=== PATIENT | female | born 1955 | race African-American/Black ===

== ENCOUNTER 2016-06-14 09:56 | Emergency (ER) | payer MEDICAID ==
--- NOTE | 2016-06-14 10:24 | ER Document Report ---
ED Respiratory Problem - General Chief Complaint: Shortness Of Breath Stated Complaint: SHORTNESS OF BREATH,COUGH Notes: The patient is a 61-year-old female, past medical history hypertension, asthma, presents with 2 weeks of dry cough and wheezing. She tried her albuterol with some relief of her symptoms. She was seen in this ER a few weeks ago given steroids which helped her symptoms. She denies fevers, chest pain, shortness of breath, nausea, vomiting, recent travel, leg swelling or sputum. TRAVEL OUTSIDE OF THE [place] IN LAST 30 DAYS: No - Related Data Allergies/Adverse Reactions: aspirin [Aspirin] Allergy (Verified 02/16/16 17:42) phenazopyridine HCl [From Pyridium] Allergy (Verified 02/16/16 17:42) Past Medical History - Social History Smoking Status: Never Smoker Frequency of alcohol use: None Drug Abuse: None Family History: Reviewed & Not Pertinent, Hypertension Patient has suicidal ideation: No Patient has homicidal ideation: No - Past Medical History Cardiac Medical History: Reports: Hx Hypertension Pulmonary Medical History: Reports: Hx Asthma Denies: Hx Tuberculosis Renal/ Medical History: Reports: Hx Kidney Stones Psychiatric Medical History: Denies: Hx Depression Past Surgical History: Reports: Hx Genitourinary Surgery - BLADDER LIFT, Hx Hysterectomy, Hx Orthopedic Surgery - back surg x6 - Immunizations Hx Diphtheria, Pertussis, Tetanus Vaccination: Yes Hx Pneumococcal Vaccination: 06/10/03 Review of Systems - Review of Systems Notes: REVIEW OF SYSTEMS: CONSTITUTIONAL: Denies fever, chills, or sweats. Denies recent illness. EENT: Denies eye, ear, throat, or mouth pain or symptoms. Denies nasal or sinus congestion. CARDIOVASCULAR: Denies chest pain, syncope. RESPIRATORY: +cough, wheezing. Denies shortness of breath, difficulty breathing. GASTROINTESTINAL: Denies abdominal pain. Denies nausea, vomiting, or diarrhea. Denies constipation. GENITOURINARY: Denies difficulty urinating, painful urination, burning, frequency, or blood in urine. MUSCULOSKELETAL: Denies neck or back pain or joint pain or swelling. SKIN: Denies rash or skin lesions. HEMATOLOGIC: Denies easy bruising or bleeding. LYMPHATIC: Denies swollen, enlarged glands. NEUROLOGICAL: Denies altered mental status or loss of consciousness. Denies headache. Denies weakness or paralysis or loss of use of either side. Denies problems with gait or speech. Denies sensory or motor loss. PSYCHIATRIC: Denies anxiety or stress or depression. ALL OTHER SYSTEMS REVIEWED AND NEGATIVE. Physical Exam - Vital signs Vitals: Temp Pulse Resp BP Pulse Ox 98.2 F 81 24 H 132/51 H 99 06/14/16 10:07 06/14/16 10:07 06/14/16 10:06/14/16 10:06/14/16 10:07 - Notes Notes: PHYSICAL EXAMINATION: GENERAL: Well-appearing, well-nourished and in no acute distress. HEAD: Atraumatic, normocephalic. EYES: Pupils equal round and reactive to light, extraocular movements intact, sclera anicteric, conjunctiva are normal. ENT: nares patent, oropharynx clear without exudates. Moist mucous membranes. NECK: Normal range of motion, supple without lymphadenopathy LUNGS: Mild wheezing and rhonchi. HEART: Regular rate and rhythm without murmurs ABDOMEN: Soft, nontender, normoactive bowel sounds. No guarding, no rebound. No masses appreciated. EXTREMITIES: Normal range of motion, no pitting or edema. No cyanosis. NEUROLOGICAL: Cranial nerves grossly intact. Normal speech, normal gait. Normal sensory, motor, and reflex exams. PSYCH: Normal mood, normal affect. SKIN: Warm, Dry, normal turgor, no rashes or lesions noted. Course - Re-evaluation Re-evalutation: 06/14/16 11:39 After DuoNeb and steroids, patient's wheezing and coughing have resolved. No pneumonia on chest x-ray and EKG is not concerning for ACS. Patient appears well and is okay for outpatient treatment of her bronchitis/asthma exacerbation. Given strict return precautions and she understands. - Vital Signs Vital signs: Temp Pulse Resp BP Pulse Ox 98.2 F 81 24 H 107/90 H 100 06/14/16 10:07 06/14/16 10:07 06/14/16 11:01 06/14/16 11:01 06/14/16 11:01 - Diagnostic Test Radiology reviewed: Image reviewed, Reports reviewed Radiology results interpreted by me: 06/14/16 11:40 NAD - EKG Interpretation by Ks EKG shows normal: Sinus rhythm, [place], Intervals, QRS Complexes, ST-T Waves Discharge - Discharge Clinical Impression: Bronchitis with asthma, acute Condition: Good Disposition: HOME, SELF-CARE Additional Instructions: BRONCHITIS: You have acute bronchitis. This disease is an infection or inflammation of the air passageways in your lungs. Symptoms usually include cough, low grade fever, shortness of breath, and wheezing. The cough usually persists for a couple of weeks. Most cases of bronchitis get better without antibiotics. We prescribe antibiotics when we believe bacteria are damaging your airways, or if there's high risk the bronchitis will worsen into pneumonia. Increase your fluid intake. A cool mist humidifier may make your lungs more comfortable. An expectorant (cough medicine that loosens phlegm) can help. If you smoke, STOP!!! Recovery from bronchitis can be somewhat slow, but you should see improvement within a day or two. Repeated episodes of bronchitis may result in lung damage -- for example, chronic bronchitis, recurrent pneumonias, or emphysema. Call the doctor if you develop increasing fever, shortness of breath, chest pain, bloody sputum, or otherwise worsen. If you have not improved at all after several days, contact the physician. BRONCHITIS WITH BRONCHOSPASM (WHEEZING): You have bronchitis with bronchospasm (wheezing). Sometimes people develop wheezing with a chest cold. This occurs either because of an underlying tendency toward asthma or because the virus itself irritates the bronchial tubes. This irritation causes cough, shortness of breath, and wheezing. Emergency treatment of bronchospasm may include adrenaline shots or bronchodilator aerosol. You may feel lightheaded and have a rapid pulse for an hour or two. Rest and get plenty of fluids. At home, we'll treat you with a bronchodilator inhaler. Corticosteroids may be required for some patients. Until you recover, avoid chemical fumes, dusts, pollens, and exercising in very cold or dry air. If you smoke, stop now! Most cases of bronchitis get better without antibiotics. We prescribe antibiotics when we believe bacteria are damaging your airways, or if there's high risk the bronchitis will worsen into pneumonia. Increase your fluid intake. A cool mist humidifier may make your lungs more comfortable. An expectorant (cough medicine that loosens phlegm) can help. Repeated episodes of bronchitis and bronchospasm may result in lung damage -- for example, chronic bronchitis, recurrent pneumonias, or emphysema. If you develop a fever, increased wheezing, chest pain, or severe shortness of breath, you should contact the doctor immediately. INHALED BRONCHODILATORS: You have received a treatment of and/or prescription for an inhaled bronchodilator -- a medication which stimulates the airways in the lung to dilate. This improves the flow of air in asthma, bronchitis, and emphysema. These medicines have some similarity to adrenaline, and can cause similar side effects: shakiness, racing heart, and a sense of nervousness. These side effects decrease with time. Contact your doctor if these side effects are severe. Do not over-use the medicine. Too-frequent use of the inhaler may make it ineffective. Call your doctor if the inhaler is not controlling your symptoms at the prescribed doses. STEROID MEDICATION: You have been given an injection of or oral medicine of the cortisone/ steroid class. This medication is used to control inflammation or allergy. Siddharth t is usually only given for a short period of time, until the acute process subsides. There are usually no side effects from short-term use of cortisone-like medications. Some persons feel an increased sense of well-being and are not sleepy at bedtime. Long-term use of cortisone medications is best avoided, unless required for a severe condition. If your condition does not remit, or relapses after the course of corticosteroid medication, you should consult your physician. USE OF ACETAMINOPHEN (Tylenol): Acetaminophen may be taken for pain relief or fever control. It's much safer than aspirin, offering a wider range of "safe" dosages. It is safe during . Some brand names are Tylenol, Panadol, Datril, Anacin 3, Tempra, and Liquiprin. Acetaminophen can be repeated every four hours. The following are maximum recommended dosages: >89 pounds or adults 650 mg to 900 mg Acetaminophen can be repeated every four hours. Maximum dose not to exceed 4000 mg a day. SMOKING: If you smoke, you should stop smoking. The tar and chemicals in cigarette smoke are harmful. Smoking has been shown to cause: emphysema chronic bronchitis lung cancer mouth and throat cancer stomach and pancreas cancer premature aging defects In addition, smoking increases ear and lung infections in children of smokers. FOLLOW-UP CARE: If you have been referred to a physician for follow-up care, call the physician s office for an appointment as you were instructed or within the next two days. If you experience worsening or a significant change in your symptoms, notify the physician immediately or return to the Emergency Department at any time for re-evaluation. Prescriptions: Prednisone [Deltasone 10 mg Tablet] 10 mg PO ASDIR PRN #21 tablet PRN Reason:
[2016-06-14] MEDS ORDERED: IPRATROPIUM/ALBUTEROL 0.5-2.5 MG/3 ML AMPUL NEB STA (10:30)
[2016-06-14] MEDS ORDERED: PREDNISONE 20 MG TABLET PO ONE (10:31)
[2016-06-14 11:50] VITALS: BP 110/86
--- NOTE | 2016-06-14 13:46 | EKG REPORT ---
SEVERITY:- NORMAL ECG - SINUS RHYTHM : Confirmed by: Terry Tafoya 14-Jun-2016 13:22:03
== END 2016-06-14 11:48 | disposition home or self-care (01) ==
LOC: ER 09:56
DX: J20.9 Acute bronchitis, unspecified (principal); R06.02 Shortness of breath; I10 Essential (primary) hypertension; R05 Cough
CPT/HCPCS: 93005; 94640; 99285; 71020; 93010; J7512; J7620

== ENCOUNTER → 2017-03-18 | Outpatient (CLI) | payer MEDICAID ==
--- NOTE | 2017-03-18 18:43 | WOMENS IMAGING REPORT ---
EXAM DESCRIPTION: BILAT SCREENING MAMMO W/CAD COMPLETED DATE/TIME: 03/18/2017 4:08 pm REASON FOR STUDY: ROUTINE SCREENING; Z12.31 Z12.31 ENCNTR SCREEN MAMMOGRAM FOR MALIGNANT NEOPLASM O F DAYA COMPARISON: 12/14/2013 TECHNIQUE: Standard craniocaudal and mediolateral oblique views of each breast recorded using Cubresaa l acquisition. LIMITATIONS: None. FINDINGS: No masses, calcifications or architectural distortion. No areas of suspicion. Read with the assistance of CAD. .[facility] - R2 Cenova Version 1.3 .[facility] - R2 Cenova Version 1.3 .[facility] - R2 Cenova Version 2.4 .[facility] [place] - R2 Cenova Version 2.4 .[facility] - R2 Director Of Grants Version 9.2 IMPRESSION: NORMAL MAMMOGRAM. BIRADS 1. BREAST DENSITY: b. There are scattered areas of fibroglandular density. BIRAD: 1 NEGATIVE RECOMMENDATION: ROUTINE SCREENING COMMENT: The patient has been notified of the results by letter per SA requirements. Additional no tification policies are in place for contacting patient with suspicious or incomplete findings. Quality ID #225: The [employer] recommends an annual screening mammogram for women aged 40 years or over. This facility utilizes a reminder system to ensure that all patients receive reminder letters, and/or direct phone calls for appointments. This includes reminders for routine scr eening mammograms, diagnostic mammograms, or other Breast Imaging Interventions when appropriate. Th is patient will be placed in the appropriate reminder system. The [employer] (ACR) has developed recommendations for screening MRI of the breast s in certain patient populations, to be used in conjunction with mammography. Breast MRI surveillanc e may be appropriate for women with more than 20% lifetime risk of developing breast cancer as deter mined by genetic testing, significant family history of the disease, or history of mantle radiation f or Hodgkins Disease. ACR Practice Guidelines 2008. TECHNICAL DOCUMENTATION: FINDING NUMBER: (1) ASSESSMENT: (1) JOB ID: [id number] [employer]- All Rights Reserved
== END ==
LOC: WI 15:39
PROVIDERS: ATTEND Internal Medicine Geriatric Medicine
DX: Z12.31 Encounter for screening mammogram for malignant neoplasm of breast (principal)
CPT/HCPCS: 77067; G0202

== ENCOUNTER → 2017-09-26 | Outpatient (CLI) | payer MEDICAID ==
--- NOTE | 2017-09-27 16:15 | XCELERA REPORT ---
[address] [address] Lower Extremity Arterial Evaluation Name: GARFIELD GONZALEZ Age: 62 yrs Gender: Female : 1955 Patient Status: Outpatient Patient Location: Study Date: 09/26/2017 11:21 AM Procedure: A color flow and duplex scan of the lower extremity arteries was performed bilaterally with velocity and waveform anaylsis. Ankle brachial indicies performed. Reason For Study: PVD Ordering Physician: LEILANI SANCHEZ Performed By: Nickolas Garcia Measurements and Calculations Right Left SOLAR PROJECT ENGINEER PSV 135.1 104.3 cm/sec Prox PFA PSV -71.7 -87.1 cm/sec Prox SFA PSV 109.4 118.7 cm/sec Mid SFA PSV -101.2 -96.8 cm/sec Dist SFA PSV -88.4 -80.0 cm/sec Prox Pop A PSV 71.2 59.4 cm/sec Dist BALA PSV 49.4 120.2 cm/sec Dist FISHER WEIR PSV 91.8 92.6 cm/sec Nick Pedis PSV -39.7 -34.5 cm/sec Right Side Arterial Evaluation Normal velocity and triphasic waveforms noted from the Common Femoral artery to the Posterior Tibial artery. Biphasic in the Anterior Tibial artery. 0-19% stenosis at the Anterior Tibial artery. Ankle Brachial index is 1.1. Left Side Arterial Evaluation Normal velocity and triphasic waveforms noted from the Common Femoral artery to the Posterior Tibial artery. Biphasic in the Dorsalis Pedis artery. 0-19% stenosis at the Dorsalis Pedis artery. Ankle Brachial index is 1.04. Interpretation Summary Mild hemodynamically significant lesions in the bilateral lower extremities, on duplex imaging, at rest. : LEILANI SANCHEZ > Willem Hallman
== END ==
LOC: SP 11:02
PROVIDERS: ATTEND Podiatrist Foot Surgery
DX: I70.25 Atherosclerosis of native arteries of other extremities with ulceration (principal)
CPT/HCPCS: 93922; 93925

== ENCOUNTER → 2017-11-11 | Outpatient (CLI) | payer MEDICAID ==
--- NOTE | 2017-11-11 11:15 | XCELERA REPORT ---
[address] [address] Lower Extremity Venous Evaluation Name: GARFIELD GONZALEZ Age: 62 yrs Gender: Female : 1955 Patient Status: Outpatient Patient Location: Study Date: 11/11/2017 09:35 AM Procedure: Color flow and duplex imaging bilaterally of the veins of the lower extremities as well as the Common Femoral veins. Reason For Study: BLE SWELLING Ordering Physician: RHETT ALMONTE Performed By: Kaia Galeano Right Sided Venous Evaluation Normal vessel filling wall to wall, compression and augmentation as well as Colour flow down to the infrageniculate veins. Left Sided Venous Evaluation Normal vessel filling wall to wall, compression and augmentation as well as Colour flow down to the infrageniculate veins. Interpretation Summary No duplex evidence of DVT or obstruction in the bilateral lower extremities. : RHETT ALMONTE > Willem Hallman
== END ==
LOC: SP 09:01
PROVIDERS: ATTEND Internal Medicine Geriatric Medicine
DX: R22.43 Localized swelling, mass and lump, lower limb, bilateral (principal)
CPT/HCPCS: 93970

== ENCOUNTER → 2018-03-31 | Outpatient (CLI) | payer MEDICAID ==
--- NOTE | 2018-03-31 13:05 | RADIOLOGY REPORT (SQ) ---
EXAM DESCRIPTION: CAROTID DOPPLER COMPLETED DATE/TIME: 03/31/2018 11:04 am REASON FOR STUDY: R42 DIZZINESS R42 DIZZINESS AND GIDDINESS COMPARISON: None. TECHNIQUE: Grayscale ultrasound, Doppler velocity and spectra, and color Doppler images acquired of the extra-cranial carotid and vertebral arteries. Images stored on PACS. LIMITATIONS: None. FINDINGS: RIGHT CAROTID CCA Velocities: Within normal limits. ICA Velocities Peak systolic 1.05 m/s. End diastolic 0.54 m/s. Proximal ICA/CCA peak systolic ratio 1.54. Spectra normal. No significant plaque. LEFT CAROTID CCA Velocities: Within normal limits. ICA Velocities Peak systolic 1.0 m/s. End diastolic 0.55 m/s. Proximal ICA/CCA peak systolic ratio 1.13. Spectra normal. No significant plaque. VERTEBRAL ARTERIES: Antegrade flow. Normal waveforms. SUBCLAVIAN ARTERIES: No finding. OTHER: No other significant finding. IMPRESSION: NO HEMODYNAMICALLY SIGNIFICANT STENOSIS. COMMENT: Quality ID #195: Velocity criteria are extrapolated from the diameter data as defined by t he Society of Radiologists in Ultrasound Consensus Conference. Radiology 2003: 229; 340-346. TECHNICAL DOCUMENTATION: JOB ID: [id number] [employer]- All Rights Reserved Reading location - IP/workstation name: [email or web address]
== END ==
LOC: SP 09:07
PROVIDERS: ATTEND Physician Assistant Medical
DX: R42 Dizziness and giddiness (principal)
CPT/HCPCS: 93880

== ENCOUNTER → 2018-05-07 | Outpatient (CLI) | payer MEDICAID ==
--- NOTE | 2018-05-07 14:13 | WOMENS IMAGING REPORT ---
EXAM DESCRIPTION: 3D SCREENING MAMMO BILAT COMPLETED DATE/TIME: 05/07/2018 10:10 am REASON FOR STUDY: BILATERAL SCREENING MAMMO 3D/Z12.31 Z12.31 ENCNTR SCREEN MAMMOGRAM FOR MALIGNANT NEOPLASM OF DAYA COMPARISON: 2013, 2016 TECHNIQUE: Standard craniocaudal and mediolateral oblique views of each breast recorded using digita l acquisition and breast tomosynthesis. LIMITATIONS: None. FINDINGS: No masses, calcifications or architectural distortion. No areas of suspicion. Read with the assistance of CAD. .[facility] - R2 Cenova Version 1.3 .[facility] - R2 Cenova Version 1.3 .[facility] - R2 Cenova Version 2.4 .[facility] [place] - R2 Cenova Version 2.4 .[facility] - R2 Auto Winder Version 9.2 IMPRESSION: NORMAL MAMMOGRAM. BIRADS 1. BREAST DENSITY: b. There are scattered areas of fibroglandular density. BIRAD: 1 NEGATIVE RECOMMENDATION: ROUTINE SCREENING Please continue yearly bilateral screening mammography/tomosynthesis in April 2019 COMMENT: The patient has been notified of the results by letter per SA requirements. Additional no tification policies are in place for contacting patient with suspicious or incomplete findings. Quality ID #225: The [employer] recommends an annual screening mammogram for women aged 40 years or over. This facility utilizes a reminder system to ensure that all patients receive reminder letters, and/or direct phone calls for appointments. This includes reminders for routine scr eening mammograms, diagnostic mammograms, or other Breast Imaging Interventions when appropriate. Th is patient will be placed in the appropriate reminder system. The [employer] (ACR) has developed recommendations for screening MRI of the breast s in certain patient populations, to be used in conjunction with mammography. Breast MRI surveillanc e may be appropriate for women with more than 20% lifetime risk of developing breast cancer as deter mined by genetic testing, significant family history of the disease, or history of mantle radiation f or Hodgkins Disease. ACR Practice Guidelines 2008. DBT Technology DBT is a type of tomographic mammography. With conventional mammography, overlapping breast tissue ma y make lesions difficult to detect, even with good compression. DBT uses an x-ray tube that rotates a round the breast, taking images at different angles. These images are then combined to create thin sl ices of the breast that the radiologist can view as a 3D reconstruction. The [employer] unit can perform full-field digital mammograms (2D imaging); or DBT (3D imaging); or both, in a combination mode that quickly performs both the mammogram and the tomosynthesis scan while the breast is still compressed. PQRS 6045F: Fluoroscopic imaging is not utilized for breast tomosynthesis. TECHNICAL DOCUMENTATION: FINDING NUMBER: (1) ASSESSMENT: (1) JOB ID: [id number] [employer]- All Rights Reserved Reading location - IP/workstation name: [email or web address]
== END ==
LOC: WI 09:30
PROVIDERS: ATTEND Internal Medicine Geriatric Medicine
DX: Z12.31 Encounter for screening mammogram for malignant neoplasm of breast (principal)
CPT/HCPCS: 77063; 77067

== ENCOUNTER → 2018-08-18 | Outpatient (CLI) | payer MEDICAID ==
--- NOTE | 2018-08-18 18:17 | XCELERA REPORT ---
[address] [place] [facility] [address] Lower Extremity Venous Evaluation Procedure: Color flow and duplex imaging of the veins of the left lower extremity as well as the right Common Femoral vein. Right Sided Venous Evaluation The right common femoral vein is fully compressible. Spontaneous and phasic flow is present in the right common femoral vein. Left Sided Venous Evaluation Normal vessel filling wall to wall, compression and augmentation as well as Colour flow down to the infrageniculate veins. Interpretation Summary No duplex evidence of DVT or obstruction in the left lower extremity nor in the right Common Femoral vein. Name: GARFIELD GONZALEZ Age: 63 yrs Gender: Female : 1955 Patient Status: Outpatient Patient Location: [facility] Study Date: 08/18/2018 03:55 PM Reason For Study: LEFT LEG SWELLING Ordering Physician: HRETT ALMONTE Performed By: Nasreen Becerril : RHETT ALMONTE > Willem Hallman
== END ==
LOC: RAD 15:19
PROVIDERS: ATTEND Internal Medicine Geriatric Medicine
DX: M79.605 Pain in left leg (principal)
CPT/HCPCS: 93971

== ENCOUNTER → 2019-03-11 | Outpatient (CLI) | payer MEDICARE, MEDICAID ==
--- NOTE | 2019-03-11 12:24 | RADIOLOGY REPORT (SQ) ---
EXAM DESCRIPTION: CHEST PA/LATERAL COMPLETED DATE/TIME: 03/11/2019 12:16 pm REASON FOR STUDY: PRE-OP COMPARISON: 06/14/2016 EXAM PARAMETERS: NUMBER OF VIEWS: two views TECHNIQUE: Digital Frontal and Lateral radiographic views of the chest acquired. RADIATION DOSE: NA LIMITATIONS: none FINDINGS: LUNGS AND PLEURA: No opacities, masses or pneumothorax. No pleural effusion. MEDIASTINUM AND HILAR STRUCTURES: No masses or contour abnormalities. HEART AND VASCULAR STRUCTURES: Heart normal size. No evidence for failure. BONES: Chavira rods are in place. There are postsurgical changes in the cervical spine as well. HARDWARE: None in the chest. OTHER: No other significant finding. IMPRESSION: NO SIGNIFICANT RADIOGRAPHIC FINDING IN THE CHEST. TECHNICAL DOCUMENTATION: JOB ID: [id number] [employer]- All Rights Reserved Reading location - IP/workstation name: [email or web address]
[2019-03-11 12:33] LABS: ABSOLUTE EOSINOPHILS # (AUTO) 0.2 10^3/uL (0.0-0.6); ABSOLUTE LYMPHOCYTES (AUTO) 3.4 10^3/uL (0.5-4.7); ABSOLUTE MONOCYTES (AUTO) 0.4 10^3/uL (0.1-1.4); ABSOLUTE NEUT (AUTO) 4.7 10^3/uL (1.7-8.2); BASOPHILS % (AUTO) 0.4 % (0-2); EOSINOPHILS % (AUTO) 2.3 % (0-6); HEMATOCRIT 37.1 % (36.0-47.0); HEMOGLOBIN 12.7 g/dL (12.0-15.5); MEAN CORPUSCULAR HEMOGLOBIN 29.8 pg (27.0-33.4); MEAN CORPUSCULAR HGB CONC 34.3 g/dL (32.0-36.0); MEAN CORPUSCULAR VOLUME 87 fl (80-97); MONOCYTES % (AUTO) 4.1 % (3-13); PLATELET COUNT 244 10^3/uL (150-450); RED BLOOD COUNT 4.27 10^6/uL (3.72-5.28); RED CELL DISTRIBUTION WIDTH 14.2 % (11.5-14.0); SEGMENTED NEUTROPHILS % (AUTO) 54.2 % (42-78); TOTAL CELLS COUNTED % (AUTO) 100 %; WHITE BLOOD COUNT 8.7 10^3/uL (4.0-10.5)
[2019-03-11 12:39] LABS: APPEARANCE,URINE SLIGHTLY-CLOUDY; BILIRUBIN,URINE NEGATIVE (NEGATIVE); COLOR,URINE AMBER; GLUCOSE, URINE NEGATIVE (NEGATIVE); KETONES,URINE TRACE mg/dL (NEGATIVE); LEUKOCYTE ESTERASE,URINE MODERATE (NEGATIVE); NITRITE,URINE NEGATIVE (NEGATIVE); PROTEIN,URINE 30 mg/dL (NEGATIVE); URINE SPECIFIC GRAVITY 1.023; UROBILINOGEN,URINE NEGATIVE mg/dL (<2.0)
[2019-03-11 12:56] LABS: ANION GAP 7 (5-19); BLOOD UREA NITROGEN 13 mg/dL (7-20); CALCIUM 9.5 mg/dL (8.4-10.2); CARBON DIOXIDE 29 mmol/L (22-30); CHLORIDE 105 mmol/L (98-107); GLUCOSE 85 mg/dL (75-110)
--- NOTE | 2019-03-11 19:56 | EKG REPORT ---
SEVERITY:- NORMAL ECG - SINUS RHYTHM : Confirmed by: Karla Salas MD 11-Mar-2019 19:56:09
== END ==
LOC: OD 11:33
PROVIDERS: ATTEND Orthopaedic Surgery
DX: Z01.812 Encounter for preprocedural laboratory examination (principal); Z01.810 Encounter for preprocedural cardiovascular examination; Z01.811 Encounter for preprocedural respiratory examination
CPT/HCPCS: 36415; 71046; 80048; 81001; 85025; 93005; 93010

== ENCOUNTER → 2019-03-11 | Outpatient (CLI) | payer MEDICARE, MEDICAID ==
[~2019-03-11] MED LIST: BUPIVACAINE INJ/PF LIPOSOME/PF 266 MG/20 ML SDV INJ PRN; CEFAZOLIN INJ 1 GM VIAL IV PRN; DEXAMETHASONE SOD PHOSPHATE INJ 4 MG/1 ML VIAL ONE; FENTANYL CITRATE INJ/PF 100 MCG/2 ML AMPUL ONE; IBUPROFEN 800 MG in NORMAL SALINE 250 ML IV PRN; LACTATED RINGERS 1000 ML IV PRN; LIDOCAINE 0.5% INJ-PF (5 MG/ML) 50 ML SDV SUBCUT PRN; MIDAZOLAM 2 MG/2 ML INJ ONE; ONDANSETRON HCL INJ/PF 4 MG/2 ML SDV ONE; OXYCODONE HCL SR 10 MG TABLET PO PRN; PANTOPRAZOLE SODIUM 20 MG TABLET.DR PO PRN; PROPOFOL INJ 200 MG/20 ML VIAL IV ONE; TRANEXAMIC ACID INJ/PF 1,000 MG/10 ML SDV ONE; VANCOMYCIN HCL 1,000 MG in DEXTROSE 5%-WATER 250 ML IV PRN
== END ==
LOC: OD 11:50 → EDSTATUS 04-06 10:00
PROVIDERS: ATTEND Orthopaedic Surgery
DX: Z53.9 Procedure and treatment not carried out, unspecified reason (principal)
CPT/HCPCS: J1100; J1741; J2250; J2405; J2704; J3010; J3370; J3490; J7050; J7060

== ENCOUNTER → 2019-05-11 | Outpatient (CLI) | payer MEDICARE, MEDICAID ==
--- NOTE | 2019-05-11 13:58 | WOMENS IMAGING REPORT ---
EXAM DESCRIPTION: 3D SCREENING MAMMO BILAT COMPLETED DATE/TIME: 05/11/2019 10:36 am REASON FOR STUDY: Z12.31 ENCOUNTER FOR SCREENING MAMMOGRAM FOR MALIGNANT NEOPLASM OF BREAST Z12.31 ENCNTR SCREEN MAMMOGRAM FOR MALIGNANT NEOPLASM OF DAYA COMPARISON: Multiple since 2013 EXAM PARAMETERS: Views: Standard craniocaudal and mediolateral oblique views of each breast recorded using digital acquisition and breast tomosynthesis. Read with the assistance of CAD. .[facility] - R2 Storage Consultant Version 9.2 LIMITATIONS: None. FINDINGS: No suspicious masses, suspicious calcifications or architectural distortion. No areas of c oncern. IMPRESSION: NEGATIVE MAMMOGRAM. BIRADS 1. BREAST DENSITY: a. The breasts are almost entirely fatty. BIRAD: ASSESSMENT: 1 NEGATIVE RECOMMENDATION: ROUTINE SCREENING Please continue yearly bilateral screening mammography/tomosynthesis in May 2020 COMMENT: The patient has been notified of the results by letter per MQSA requirements. Additional no tification policies are in place for contacting patient with suspicious or incomplete findings. Quality ID #225: The [employer] [place] [employer] recommends an annual screening mammogram for women aged 40 years or over. This facility utilizes a reminder system to ensure that all patients receive reminder letters, and/or direct phone calls for appointments. This includes reminders for routine scr eening mammograms, diagnostic mammograms, or other Breast Imaging Interventions when appropriate. Th is patient will be placed in the appropriate reminder system. TECHNICAL DOCUMENTATION: FINDING NUMBER: (1) ASSESSMENT: (1) JOB ID: [id number] [employer]- All Rights Reserved Reading location - IP/workstation name: [email or web address]
== END ==
LOC: WI 09:42
PROVIDERS: ATTEND Internal Medicine Geriatric Medicine
DX: Z12.31 Encounter for screening mammogram for malignant neoplasm of breast (principal)
CPT/HCPCS: 77063; 77067

== ENCOUNTER → 2019-08-05 | Outpatient (CLI) | payer MEDICARE, MEDICAID ==
--- NOTE | 2019-08-05 10:06 | RADIOLOGY REPORT (SQ) ---
EXAM DESCRIPTION: CT ABD/PELVIS WITH IV ONLY COMPLETED DATE/TIME: 08/05/2019 9:41 am REASON FOR STUDY: R10.9 UNSPECIFIED ABDOMINAL PAIN, R19.7 DIARRHEA, UNSPECIFIED, R11.2 NAUSEA R10.9 UNSPECIFIED ABDOMINAL PAIN R19.7 DIARRHEA, UNSPECIFIED R11.2 NAUSEA WITH VOMITING, UNSPECIFIED COMPARISON: None. TECHNIQUE: CT scan of the abdomen and pelvis performed using helical scanning technique with dynamic intravenous contrast injection. No oral contrast. Images reviewed with lung, soft tissue, and bone windows. Reconstructed coronal and sagittal MPR images reviewed. Delayed images for evaluation of the urinary system also acquired. All images stored on PACS. All CT scanners at this facility use dose modulation, iterative reconstruction, and/or weight based d osing when appropriate to reduce radiation dose to as low as reasonably achievable (ALARA). [facility]: Dose Right [facility]: CareDose [facility]: Dose Right [facility]: Teradose 4D [facility]: [email or web address] CONTRAST TYPE AND DOSE: contrast/concentration: Isovue 350.00 mg/ml; Total Contrast Delivered: 100.0 ml; Total Saline Delivered: 72.0 ml RENAL FUNCTION: Creatinine 1.1. RADIATION DOSE: CT Rad equipment meets quality standard of care and radiation dose reduction techniq ues were employed. CTDIvol: 18.0 - 18.2 mGy. DLP: 1828 mGy-cm.. LIMITATIONS: None. FINDINGS: LOWER CHEST: No significant findings. No nodules or infiltrates. LIVER: Normal size. No masses. No dilated ducts. SPLEEN: Normal size. No focal lesions. PANCREAS: No masses. No significant calcifications. No adjacent inflammation or peripancreatic fluid collections. Pancreatic duct not dilated. GALLBLADDER: Surgically absent. ADRENAL GLANDS: No significant masses or asymmetry. RIGHT KIDNEY AND URETER: No solid masses. No significant calcifications. No hydronephrosis or hyd roureter. LEFT KIDNEY AND URETER: No solid masses. No significant calcifications. No hydronephrosis or hydr oureter. AORTA AND VESSELS: No aneurysm. No dissection. Renal arteries, SMA, celiac without stenosis. RETROPERITONEUM: No retroperitoneal adenopathy, hemorrhage or masses. BOWEL AND PERITONEAL CAVITY: No masses or inflammatory changes. No free fluid or peritoneal masses. APPENDIX: Not visualized. PELVIS: No mass. No free fluid. Normal bladder. ABDOMINAL WALL: No masses. Small umbilical hernia containing fat. BONES: No significant or acute findings. Surgical changes and hardware in the lumbar spine. OTHER: No other significant finding. IMPRESSION: NO SIGNIFICANT OR ACUTE FINDING IN THE ABDOMEN OR PELVIS ON CT SCAN WITH IV CONTRAST. I NCIDENTAL FINDINGS ABOVE. TECHNICAL DOCUMENTATION: JOB ID: [id number] Quality ID # [id number]: Final reports with documentation of one or more dose reduction techniques (e.g., Au tomated exposure control, adjustment of the mA and/or kV according to patient size, use of iterative reconstruction technique) 2010 [email or web address]- All Rights Reserved Reading location - IP/workstation name: [email or web address]
== END ==
LOC: RAD 08:38
PROVIDERS: ATTEND Internal Medicine Geriatric Medicine
DX: R10.9 Unspecified abdominal pain (principal); R19.7 Diarrhea, unspecified; R11.2 Nausea with vomiting, unspecified
CPT/HCPCS: 74177; 82565

== ENCOUNTER 2020-04-27 12:43 | Emergency (ER) | payer OTHER, MEDICARE, MEDICAID ==
[2020-04-27] MEDS ORDERED: OXYCODONE-ACETAMINOPHEN 5-325 MG TABLET PO ONE (13:33)
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
--- NOTE | 2020-04-27 14:29 | RADIOLOGY REPORT (SQ) ---
EXAM DESCRIPTION: CT CERVICAL SPINE WITHOUT IMAGES COMPLETED DATE/TIME: 04/27/2020 2:17 pm REASON FOR STUDY: neck pain COMPARISON: None. TECHNIQUE: Axial images acquired through the cervical spine without intravenous contrast. Images re viewed with lung, soft tissue and bone windows. Reconstructed coronal and sagittal MPR images review ed. Images stored on PACS. All CT scanners at this facility use dose modulation, iterative reconstruction, and/or weight based d osing when appropriate to reduce radiation dose to as low as reasonably achievable (ALARA). [facility]: Dose Right [facility]: CareDose [facility]: Dose Right [facility]: Teradose 4D [facility]: [employer] RADIATION DOSE: CT Rad equipment meets quality standard of care and radiation dose reduction techniq ues were employed. CTDIvol: 24.6 mGy. DLP: 477 mGy-cm. mGy. LIMITATIONS: None. FINDINGS: ALIGNMENT: Anatomic. MINERALIZATION: Normal. VERTEBRAL BODIES: No fractures or dislocation. DISCS: Multilevel degenerative disc FACETS, LATERAL MASSES, POSTERIOR ELEMENTS: No fractures. No dislocation. No acute findings. HARDWARE: Extensive spine hardware VISUALIZED RIBS: No fractures. LUNG APICES AND SOFT TISSUES: No significant or acute findings. OTHER: No other significant finding. IMPRESSION: No acute findings. TECHNICAL DOCUMENTATION: JOB ID: [id number] Quality ID # [id number]: Final reports with documentation of one or more dose reduction techniques (e.g., Au tomated exposure control, adjustment of the mA and/or kV according to patient size, use of iterative reconstruction technique) 2010 [employer]- All Rights Reserved Reading location - IP/workstation name: [email or web address]
[2020-04-27] MEDS ORDERED: LORAZEPAM INJ 2 MG/1 ML VIAL IM ONE (14:50)
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
[2020-04-27] MEDS ORDERED: ONDANSETRON HCL INJ/PF 4 MG/2 ML SDV IV ONE (15:00)
[2020-04-27] MEDS ORDERED: HYDROMORPHONE HCL INJ/PF 2 MG/ML AMPULE IV ONE ×2 (15:00→17:09)
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
[2020-04-27 16:06] LABS: ABSOLUTE LYMPHOCYTES (AUTO) 2.8 10^3/uL (0.5-4.7); ABSOLUTE MONOCYTES (AUTO) 0.6 10^3/uL (0.1-1.4); ABSOLUTE NEUT (AUTO) 6.4 10^3/uL (1.7-8.2); BASOPHILS % (AUTO) 0.4 % (0-2); EOSINOPHILS % (AUTO) 0.4 % (0-6); HEMATOCRIT 37.9 % (36.0-47.0); LYMPHOCYTES % (AUTO) 28.6 % (13-45); MEAN CORPUSCULAR HEMOGLOBIN 29.5 pg (27.0-33.4); MEAN CORPUSCULAR HGB CONC 34.4 g/dL (32.0-36.0); MEAN CORPUSCULAR VOLUME 86 fl (80-97); MONOCYTES % (AUTO) 5.6 % (3-13); PLATELET COUNT 261 10^3/uL (150-450); RED BLOOD COUNT 4.41 10^6/uL (3.72-5.28); RED CELL DISTRIBUTION WIDTH 13.9 % (11.5-14.0); TOTAL CELLS COUNTED % (AUTO) 100 %; WHITE BLOOD COUNT 9.9 10^3/uL (4.0-10.5)
[2020-04-27 16:22] LABS: ALBUMIN 4.3 g/dL (3.5-5.0); ALKALINE PHOSPHATASE 114 U/L (38-126); ANION GAP 13 (5-19); ASPARTATE AMINO TRANSFERASE 26 U/L (14-36); BILIRUBIN,DIRECT 0.1 mg/dL (0.0-0.4); BILIRUBIN,TOTAL 0.4 mg/dL (0.2-1.3); BLOOD UREA NITROGEN 15 mg/dL (7-20); CALCIUM 10.2 mg/dL (8.4-10.2); CARBON DIOXIDE 21 mmol/L (22-30); CHLORIDE 104 mmol/L (98-107); GLUCOSE 103 mg/dL (75-110); POTASSIUM 4.2 mmol/L (3.6-5.0)
[2020-04-27 16:42] VITALS: BP 123/73
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
[2020-04-27] MEDS ORDERED: DIAZEPAM INJ 10 MG/2 ML DISP.SYRIN IV ONE (18:14)
[2020-04-27 18:41] LABS: APPEARANCE,URINE SLIGHTLY-CLOUDY; BILIRUBIN,URINE NEGATIVE (NEGATIVE); COLOR,URINE YELLOW; GLUCOSE, URINE NEGATIVE (NEGATIVE); KETONES,URINE NEGATIVE (NEGATIVE); PROTEIN,URINE NEGATIVE (NEGATIVE); URINE SPECIFIC GRAVITY 1.029; UROBILINOGEN,URINE NEGATIVE mg/dL (<2.0)
--- NOTE | 2020-04-27 19:27 | EKG REPORT ---
SEVERITY:- NORMAL ECG - SINUS RHYTHM : Confirmed by: Karla Salas MD 27-Apr-2020 19:27:18
--- NOTE | 2020-04-27 22:03 | RADIOLOGY REPORT (SQ) ---
MRI of the lumbar spine: 04/27/2020 8:56 PM CORPSMAN TECHNIQUE: Sagittal T1, T2, STIR; axial T1 and T2-weighted images of the lumbar spine were obtained. HISTORY: 55-year old patient with severe intractable back pain. COMPARISON: CT of the lumbar spine from 04/27/2020 FINDINGS: Evaluation is limited by soft tissue attenuation as well as multilevel spinal artifact with hardware extending throughout the thoracolumbar spine. The visualized vertebral bodies appear to be well aligned. There are multilevel laminotomy defects present. The visualized kidneys demonstrate no evidence of hydronephrosis. The conus is not well visualized. No gross marrow signal abnormality is seen to suggest an acute injury or an infiltrative process. There is also interbody fusion at L2/L3 through L5/S1 present. There is some trace fluid signal posterior to the thecal sac at L4-L5 which is T2 hyperintense and T1 hypointense. The be due to postsurgical change. This measures at least 6.8 cm in craniocaudad dimension and 5 to 6 mm in AP dimension. Infection is not fully excluded. No gross neural foraminal narrowing is seen at the lower lumbar spine. The upper lumbar spine is very limited by artifact from the hardware. There is hyperintense signal within the subcutaneous soft tissues posteriorly which may represent dependent edema. This can also be seen with cellulitis or from postsurgical change. IMPRESSION: There is some trace fluid signal seen posterior to the thecal sac from L4 to L5 which may be due to surgery. Evaluation is very limited from multilevel spinal hardware and soft tissue artifact.
--- NOTE | 2020-04-27 22:08 | RADIOLOGY REPORT (SQ) ---
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 HISTORY: 55- year old patient with severe, intractable back pain. COMPARISON: CT the thoracic spine from 04/27/2020. FINDINGS: The visualized vertebral bodies appear to be well aligned. No abnormal marrow signal is seen to suggest an acute injury or an infiltrative process. There is multilevel spinal fusion noted throughout the thoracolumbar spine. Anterior cervicothoracic fusion hardware is also present. The hardware appears to begin at approximately T4 and extends into the visualized lumbar spine. The visualized paravertebral soft tissues appear unremarkable. No significant loss of vertebral body height is seen. Mild to moderate multilevel intervertebral disc space narrowing is seen. No gross cord signal abnormality is apparent. The cord is not well-visualized at the lower thoracic spine. There is hyperintense signal seen around the hardware within the lower lumbar spine region. This could be due to postoperative change. Infection or edema is not excluded. The conus is not visualized. IMPRESSION: There is multilevel spinal hardware present. There is hyperintense signal seen around the hardware at the thoracolumbar spine. This could be due to postoperative change. Infection is not fully excluded.
[2020-04-27] MEDS ORDERED: HYDROMORPHONE HCL INJ/PF 2 MG/ML AMPULE IM ONE (23:11)
[2020-04-27] MEDS ORDERED: ONDANSETRON 4 MG TAB.RAPDIS PO ONE (23:51)
[2020-04-27] MEDS ORDERED: METOCLOPRAMIDE HCL 10 MG TABLET PO ONE (23:58)
== END 2020-04-28 00:55 | disposition home or self-care (01) ==
LOC: ER 12:43
DX: M54.5 Low back pain (principal); M54.2 Cervicalgia; R07.9 Chest pain, unspecified; M25.561 Pain in right knee; M25.562 Pain in left knee; R10.9 Unspecified abdominal pain; R10.817 Generalized abdominal tenderness; S09.90XA Unspecified injury of head, initial encounter; V47.0XXA Car driver injured in collision with fixed or stationary object in nontraffic accident, initial encounter; V43.02XA Car driver injured in collision with other type car in nontraffic accident, initial encounter; Y93.89 Activity, other specified; Y92.481 Parking lot as the place of occurrence of the external cause; Z98.890 Other specified postprocedural states; R06.4 Hyperventilation; I10 Essential (primary) hypertension; J45.909 Unspecified asthma, uncomplicated; R00.0 Tachycardia, unspecified
CPT/HCPCS: 93005; 99285; 96372; 96374; 96375; 36415; 85025; 80053; 81001; 84484; 72146; 72148; 70450; 71260; 72125; 72128; 72131; 74177; 93010; J3360; J1170; J2060; J2405

== ENCOUNTER → 2020-06-17 | Outpatient (CLI) | payer MEDICARE, MEDICAID ==
--- NOTE | 2020-06-17 10:56 | WOMENS IMAGING REPORT ---
EXAM DESCRIPTION: 3D SCREENING MAMMO BILAT IMAGES COMPLETED DATE/TIME: 06/17/2020 10:27 am REASON FOR STUDY: Z12.31 ENCOUNTER FOR SCREENING MAMMOGRAM FOR MALIGNANT NEOPLASM OF BREAST Z12.31 ENCNTR SCREEN MAMMOGRAM FOR MALIGNANT NEOPLASM OF [place] COMPARISON: 2013 and subsequent. EXAM PARAMETERS: Standard craniocaudal and mediolateral oblique views of each breast recorded using digital acquisition and breast tomosynthesis. Read with the assistance of CAD. .[facility] - [employer] Version 9.2 LIMITATIONS: None. FINDINGS: RIGHT BREAST MASSES: No suspicious masses. CALCIFICATIONS: No new or suspicious calcifications. ARCHITECTURAL DISTORTION: None. ASYMMETRY: None noted. OTHER: No other significant findings. LEFT BREAST MASSES: No suspicious masses. CALCIFICATIONS: No new or suspicious calcifications. ARCHITECTURAL DISTORTION: None. ASYMMETRY: Focal asymmetry mid depth CC view close to 9 cm from the nipple. Not clearly seen previou sly although MLO view suggests chronic asymmetries. OTHER: No other significant findings. IMPRESSION: Left breast asymmetry. 0 Incomplete: Needs Additional Imaging Evaluation and/or prior Mammograms for Comparison. BREAST DENSITY: b. There are scattered areas of fibroglandular density. BIRAD: ASSESSMENT: 0 Incomplete: Needs Additional Imaging Evaluation and/or prior Mammograms for C omparison. RECOMMENDATION: RECOMMENDED FOLLOW-UP: Spot Compression with Ultrasound if indicated. ADDITIONAL RECOMMENDATION- No additional recommendations. The patient will be contacted for additional imaging. COMMENT: The patient has been notified of the results by letter per [place] requirements. Additional no tification policies are in place for contacting patient with suspicious or incomplete findings. Quality ID #[id number]: The [employer] recommends an annual screening mammogram for women aged 40 years or over. This facility utilizes a reminder system to ensure that all patients receive reminder letters, and/or direct phone calls for appointments. This includes reminders for routine scr eening mammograms, diagnostic mammograms, or other Breast Imaging Interventions when appropriate. Th is patient will be placed in the appropriate reminder system. TECHNICAL DOCUMENTATION: FINDING NUMBER: (1) ASSESSMENT: (1) JOB ID: [id number] 2010 [employer]- All Rights Reserved Reading location - IP/workstation name: [email or web address]
== END ==
LOC: WI 09:43
PROVIDERS: ATTEND Internal Medicine Geriatric Medicine
DX: Z12.31 Encounter for screening mammogram for malignant neoplasm of breast (principal); N64.89 Other specified disorders of breast
CPT/HCPCS: 77063; 77067

== ENCOUNTER → 2020-06-30 | Day surgery (SDC) | payer MEDICARE, MEDICAID ==
[~2020-06-30] MED LIST changes: +BUPIVACAINE HCL 0.5 % INJ/PF 30 ML SDV ONE; -BUPIVACAINE INJ/PF LIPOSOME/PF 266 MG/20 ML SDV INJ PRN; -CEFAZOLIN INJ 1 GM VIAL IV PRN; -DEXAMETHASONE SOD PHOSPHATE INJ 4 MG/1 ML VIAL ONE; -FENTANYL CITRATE INJ/PF 100 MCG/2 ML AMPUL ONE; -IBUPROFEN 800 MG in NORMAL SALINE 250 ML IV PRN; -LACTATED RINGERS 1000 ML IV PRN; -LIDOCAINE 0.5% INJ-PF (5 MG/ML) 50 ML SDV SUBCUT PRN; +LIDOCAINE 1% INJ-PF (10 MG/ML) 30 ML SDV ONE; -MIDAZOLAM 2 MG/2 ML INJ ONE; -ONDANSETRON HCL INJ/PF 4 MG/2 ML SDV ONE; -OXYCODONE HCL SR 10 MG TABLET PO PRN; -PANTOPRAZOLE SODIUM 20 MG TABLET.DR PO PRN; -PROPOFOL INJ 200 MG/20 ML VIAL IV ONE; -TRANEXAMIC ACID INJ/PF 1,000 MG/10 ML SDV ONE; -VANCOMYCIN HCL 1,000 MG in DEXTROSE 5%-WATER 250 ML IV PRN
--- NOTE | 2020-06-30 10:55 | Operative Report ---
PROCEDURE: KNEE RADIOFREQUENCY bilateral under ultrasound guidance Preoperative Diagnosis: Bilateral knee osteoarthritis Postoperative Diagnosis: Bilateral knee osteoarthritis 1. Superolateral genicular branch from the vastus lateralis 2. Superomedial genicular branch from the vastus medialis 3. Inferomedial genicular branch from the saphenous nerve DATE OF PROCEDURE: June 30, 2020 ANESTHESIA: Local anesthesia COMPLICATIONS: None reported PROCEDURE IN DETAIL: Hx/PE/meds/allergies/applicable labs reviewed. No changes and no contraindications were found. Full description of the procedure was provided including benefits as well as possible complications including transient increased pain, stomach irritation, mood alteration, transient weakness or parasthesias as well as more serious nerve injury, bleeding, infection or allergic reaction. Informed consent was obtained and documented. The patient was brought to the procedure room and placed on the exam table in a comfortable supine position. The place for needle placement was obtained by manual palpation with ultrasound confirmation. The sterile field was prepared by chloroprep and sterile drapes. Local anesthesia superficial and deep was provided by local infiltration of 2% lidocaine. A 17g 75 mm radiofrequency introducer needle with a 4 mm active tip was placed overlying the bilateral knee joint and using ultrasound guidance the needle was advanced to a bony endpoint on the superiolateral portion of the femoral condyle of the bilateral knee. A second needle was advanced to a bony endpoint on the superiomedial portion of the femoral condyle. A third needle was then placed over the inferiomedial portion of the tibial condyle until a bony endpoint was met. 4th needle placed 3mm above the patella with the tip in contact with the Medial retinacular branch from the vastus intermedius. Attempted aspiration yielded no blood. Transverse ultrasound views showed all the needles at 50% depth of the femur and tibia. Motor stimulation was tested at 2.0 volts with no leg movement. Images were saved in AP and lateral. A mixture consisting of 0.5% bupivacaine was slowly injected. Then a radiofrequency ablation of each of the geniculate nerves were done at 80 degrees Celsius for 2 minutes and 30 seconds each. The needles were withdrawn. The patient tolerated the procedure well. After observation the patient was discharged with instructions and follow up. They were also provided contact information to call regarding any concerning symptoms or questions. IMPRESSION: 1. Successful geniculate bilateral knee radiofrequency ablation was performed. 2. The patient was given prescription of home medicines. 3. RTC in 1-2 week(s).
--- OUTSIDE RECORDS SUMMARY | 2020-06-30 14:33 | XMS REPORT ---
:1955 [facility] [place] [address] [place] [address] Care Team Providers Name Role Phone OSTUCKER Primary Care Physician Unavailable Allergies, Adverse Reactions, Alerts Allergy Allergy Status Severity Reaction(s) Onset Inactive Treating C omments Name Type Date Date Clinician Aspirin Allergy to Active 2012-06 substance 00:00:0 0 Pyridium Allergy to Active 2012-06 substance 00:00:0 0 Aspirin Allergy to Active Mild Other substance Medications Ordered Filled Start Stop Current Ordering Indication Dosage Frequency Signature Comments Components Medication Medication Date Date Medication? Clinician (SIG) Name Name albuterol 2019-06 No albuterol sulfate HFA 2-22 sulfate 90 00:00: HFA 90 mcg/actuati 00 mcg/actuat on aerosol ion inhaler aerosol inhaler Symbicort 2019-06 No Symbicort 160 mcg-4.5 2-22 160 mcg/actuati 00:00: mcg-4.5 on HFA 00 mcg/actuat aerosol ion HFA inhaler aerosol inhaler trazodone 2019-06 No trazodone 50 mg 2-22 50 mg tablet 00:00: tablet 00 cilostazol No 1 BID cilostazol 100 mg 100 mg tablet Take tablet 1 tablet Take 1 twice a day tablet by oral twice a route for day by 30 days. oral route for 30 days. diethylprop No 1 TID diethylpro ion 25 mg pion 25 mg tablet Take tablet 1 tablet 3 Take 1 times a day tablet 3 by oral times a route day by before oral route meals for before 30 days. meals for 30 days. duloxetine No duloxetine 60 mg 60 mg capsule,del capsule,de ayed layed release release TAKE 1 TAKE 1 CAPSULE BY CAPSULE BY MOUTH ONCE MOUTH ONCE A DAY A DAY fluticasone No fluticason propionate e 50 propionate mcg/actuati 50 on nasal mcg/actuat spray,suspe ion nasal nsion Use 2 spray,susp sprays per ension Use nostrum 2 sprays daily per nostrum daily montelukast No montelukas 10 mg t 10 mg tablet TAKE tablet ONE TABLET TAKE ONE BY MOUTH TABLET BY EVERY NIGHT MOUTH AT BEDTIME EVERY NIGHT AT BEDTIME ProAir HFA No 2puff(s Q4H ProAir HFA 90 ) 90 mcg/actuati mcg/actuat on aerosol ion inhaler aerosol Inhale 2 inhaler puffs every Inhale 2 4 hours by puffs inhalation every 4 route as hours by needed. inhalation route as needed. Vitamin D2 No 1capsul Q1W Vitamin D2 50,000 unit e(s) 50,000 capsule unit Take 1 capsule capsule Take 1 every week capsule by oral every week route for by oral 90 days. route for 90 days. Zofran 4 mg No 1 Q4H Zofran 4 tablet Take mg tablet 1 tablet Take 1 every 4 tablet hours by every 4 oral route hours by as needed. oral route as needed. ProAir HFA No 2puff(s Q4H ProAir HFA 90 ) 90 mcg/actuati mcg/actuat on aerosol ion inhaler aerosol Inhale 2 inhaler puffs every Inhale 2 4 hours by puffs inhalation every 4 route as hours by needed for inhalation 30 days. route as needed for 30 days. ipratropium No 3mL QID ipratropiu 0.5 m 0.5 mg-albutero mg-albuter l 3 mg (2.5 ol 3 mg mg base)/3 (2.5 mg mL base)/3 mL nebulizatio nebulizati n soln on soln Inhale 3 mL Inhale 3 4 times a mL 4 times day by a day by nebulizatio nebulizati n route as on route needed for as needed 30 days. for 30 days. albuterol No albuterol sulfate HFA sulfate 90 HFA 90 mcg/actuati mcg/actuat on aerosol ion inhaler aerosol Inhale 2 inhaler puffs every Inhale 2 4 hours by puffs inhalation every 4 route as hours by needed for inhalation 30 days. route as needed for 30 days. Augmentin No 1 Q12H Augmentin 875 mg-125 875 mg-125 mg tablet mg tablet Take 1 Take 1 tablet tablet every 12 every 12 hours by hours by oral route oral route for 10 for 10 days. days. Symbicort No 2puff(s BID Symbicort 160 mcg-4.5 ) 160 mcg/actuati mcg-4.5 on HFA mcg/actuat aerosol ion HFA inhaler aerosol Inhale 2 inhaler puffs twice Inhale 2 a day by puffs inhalation twice a route for day by 30 days. inhalation route for 30 days. loperamide No 1 TID loperamide 2 mg tablet 2 mg Take 1 tablet tablet 3 Take 1 times a day tablet 3 by oral times a route as day by needed. oral route as needed. Carafate No 10mL QID Carafate 100 mg/mL 100 mg/mL oral oral suspension suspension Take 10 mL Take 10 mL 4 times a 4 times a day by oral day by route for oral route 30 days. for 30 days. amoxicillin No 1 Q12H amoxicilli 500 n 500 mg-potassiu mg-potassi m um clavulanate clavulanat 125 mg e 125 mg tablet Take tablet 1 tablet Take 1 every 12 tablet hours by every 12 oral route hours by for 5 days. oral route for 5 days. diclofenac No 1patch( BID diclofenac epolamine es) epolamine 1.3 % 1.3 % transdermal transderma 12 hour l 12 hour patch Apply patch 1 patch Apply 1 twice a day patch by twice a transdermal day by route for transderma 30 days. l route for 30 days. Lyrica 50 No 1capsul TID Lyrica 50 mg capsule e(s) mg capsule Take 1 Take 1 capsule 3 capsule 3 times a day times a by oral day by route as oral route directed as for 30 directed days. for 30 days. meloxicam No meloxicam 7.5 mg 7.5 mg tablet tablet Mobic 7.5 No 1 BID Mobic 7.5 mg tablet mg tablet Take 1 Take 1 tablet tablet twice a day twice a by oral day by route for oral route 30 days. for 30 days. Lyrica 1 No Lyrica 1 tab tab loperamide No loperamide 2 mg 2 mg capsule PRN capsule PRN ondansetron No ondansetro HCl 4 mg n HCl 4 mg tablet tablet pregabalin No pregabalin 50 mg 50 mg capsule capsule Shingrix No Shingrix (PF) 50 (PF) 50 mcg/0.5 mL mcg/0.5 mL intramuscul intramuscu ar lar suspension, suspension kit , kit sucralfate No sucralfate 100 mg/mL 100 mg/mL oral oral suspension suspension Symbicort No Symbicort 160 mcg-4.5 160 mcg/actuati mcg-4.5 on HFA mcg/actuat aerosol ion HFA inhaler aerosol inhaler trazodone No trazodone 50 mg 50 mg tablet tablet Voltaren 1 No Voltaren 1 % topical % topical gel APPLY 2 gel APPLY GRAMS TO 2 GRAMS TO THE THE AFFECTED AFFECTED AREA(S) BY AREA(S) BY TOPICAL TOPICAL ROUTE 4 ROUTE 4 TIMES PER TIMES PER DAY DAY cyclobenzap No 2 Q1D cyclobenza rine 10 mg natasha 10 tablet Take mg tablet 2 tablets Take 2 every day tablets by oral every day route for by oral 30 days. route for 30 days. Valium 5 mg No Valium 5 tablet Take mg tablet 1 tablet by Take 1 mouth 30 tablet by minutes mouth 30 prior to minutes your prior to procedure, your take 2nd procedure, tablet with take 2nd you and tablet take if with you needed. and take if needed. GaviLyte-G No GaviLyte-G 236 236 gram-22.74 gram-22.74 gram-6.74 gram-6.74 gram-5.86 gram-5.86 gram oral gram oral solution solution hydrocortis No hydrocorti one 2.5 % sone 2.5 % topical topical cream with cream with perineal perineal applicator applicator hydroxyzine No hydroxyzin HCl 25 mg e HCl 25 tablet mg tablet irbesartan No irbesartan 300 300 mg-hydrochl mg-hydroch orothiazide lorothiazi 12.5 mg de 12.5 mg tablet 1 tablet 1 tab po qd tab po qd dicyclomine No dicyclomin 10 mg e 10 mg capsule capsule Metaxall No 1 TID Metaxall 800 mg 800 mg tablet Take tablet 1 tablet 3 Take 1 times a day tablet 3 by oral times a route. day by oral route. omeprazole No omeprazole 40 mg 40 mg capsule,del capsule,de ayed layed release release oxycodone-a No oxycodone- cetaminophe acetaminop n 5 mg-325 hen 5 mg tablet mg-325 mg tablet Problems Condition Condition Condition Status Onset Resolution Last Treatin g Comments Name Details Category Date Date Treatment Clinician Date Obstructive Obstructive Problem Active sleep apnea Sleep Apnea 7-07 syndrome Syndrome 00:00: 00 Swelling of Swelling of Problem Active lower leg Lower Leg 6-15 00:00: 00 Irritable Irritable Problem Active bowel Bowel 5-13 syndrome Syndrome 00:00: 00 Thoracic Thoracic Problem Active spondylosis Spondylosis 1-13 without without 00:00: myelopathy Myelopathy 00 Persistent Persistent Problem Active 2018-06 insomnia Insomnia 1-26 00:00: 00 Bilateral Bilateral Problem Active knee pain Knee Pain 9-24 00:00: 00 Sacroiliac Sacroiliac Problem Active joint pain Joint Pain 6-12 00:00: 00 Swelling of Swelling of Problem Inactiv lower leg Lower Leg e 6- 00:00: 00 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:00: of lower of Lower 00 extremity Extremity Sleep Sleep Problem Inactiv disorder Disorder e 2-28 00:00: 00 Body mass Body Mass Problem Active index 40+ - Index 40+ - 1-10 severely Severely 00:00: obese Obese 00 Chronic Chronic Problem Active 2016-06 back pain Back Pain 0-10 00:00: 00 Peripheral Peripheral Problem Active vestibular Vestibular 4-13 disease Disease 00:00: 00 Essential Essential Problem Active 2015-06 hypertensio Hypertensio 0-13 n n 00:00: 00 Asthma Asthma Problem Active 2015-06 0-13 00:00: 00 Degenerativ Degenerativ Problem Active 2015-06 e joint e Joint 0-13 disease Disease 00:00: involving Involving 00 multiple Multiple joints Joints Arthritis Arthritis Problem Active 2015-06 0-13 00:00: 00 Degeneratio Degeneratio Problem Active 2015-06 n of n of 0-13 interverteb Interverteb 00:00: ral disc ral Disc 00 Lumbosacral Lumbosacral Problem Active 2015-06 radiculopat Radiculopat 0-13 hy hy 00:00: 00 Peripheral Peripheral Problem Active vascular Vascular 6-09 disease Disease 00:00: 00 Disorder of Disorder of Problem Active trunk Trunk 6- 00:00: 00 Disorder of Disorder of Problem Active sacrum Sacrum 4-08 00:00: 00 Spasm Spasm Problem Active 4-08 00:00: 00 Neck pain Neck Pain Problem Active 2-25 00:00: 00 Asthma Asthma Problem Active 1 00:00: 00 Pain in Pain in Problem Active thoracic Thoracic 1-29 spine Spine 00:00: 00 Low back Low Back Problem Active pain Pain 07-08 00:00: 00 History of History of Problem Active cardiovascu Cardiovascu 07-08 lar disease lar Disease 00:00: 00 History of History of Problem Active gallstones Gallstones 06-10 00:00: 00 Procedures Procedure Date / Time Performed Performing Clinician Devic e facet joint injection, thoracic 2020-06-06 00:00:00 (PROC) XR, lumbar spine 2020-05-12 00:00:00 XR, cervical spine 2020-05-12 00:00:00 XR, thoracic spine 2020-05-12 00:00:00 RADIOLOGIC EXAM KNEE 3 VIEWS 2020-03-09 00:00:00 genicular nerve block (PROC) 2020-03-09 00:00:00 radiofrequency ablation (SURG) 2020-03-09 00:00:00 ELECTROCARDIOGRAM COMPLETE 2019-09-21 00:00:00 XR, chest, 2 view 2019-09-21 00:00:00 CT, abdomen + pelvis, w/ contrast 2019-08-04 00:00:00 XR, lumbar spine 2019-06-15 00:00:00 facet joint injection, thoracic 2019-06-15 00:00:00 (PROC) ELECTROCARDIOGRAM COMPLETE 2019-05-05 00:00:00 bone density 2019-05-05 00:00:00 MAMMO, screening, digital, 2019-05-05 00:00:00 bilateral XR, knee 2018-12-08 00:00:00 US, knee 2018-10-22 00:00:00 US, duplex, venous, lower extremity 2018-08-18 00:00:00 XR, ankle 2018-06-24 00:00:00 MAMMO, screening, digital, 2018-04-23 00:00:00 bilateral Back Surgery 2012-06-10 00:00:00 Back Surgery 2010-06-10 00:00:00 Back Surgery 2009-06-10 00:00:00 Back Surgery 2007-06-10 00:00:00 Head or Neck Surgery 2005-06-10 00:00:00 NECK/CHEST SURGERY PROCEDURE 2004-06-10 00:00:00 Back Surgery 2003-06-10 00:00:00 Back Surgery 1998-06-10 00:00:00 Back Surgery 1996-06-10 00:00:00 Back Surgery 1995-06-10 00:00:00 FOOT/TOES SURGERY PROCEDURE 1989-06-10 00:00:00 TOTAL HYSTERECTOMY 1975-06-10 00:00:00 Back Surgery Cholecystectomy Hysterectomy Procedure on Spine ABDOMEN SURGERY PROCEDURE NECK SPINE FUSION Results Test Description Test Time Test Comments Text Results Atomic Results Result Comments CBC W Auto Differential panel - Blood 2020-04-01 11:45:00 Test Item Value Reference Range Comments WBC (test code = WBC) 8.5 K/uL 4.1-10.9 lym% (test code = lym%) 43.0 % 10.0-58.5 lym# (test code = lym#) 3.7 % 0.6-4.1 mxd# (test code = mxd#) 0.7 % 0.0-1.8 mxd% (test code = mxd%) 8.5 % 0.1-24.0 gran (test code = gran) 4.1 % 2.0-7.8 gran% (test code = gran%) 48.5 % 37.0-92.0 RBC (test code = RBC) 4.34 M/uL 4.20-6.30 HGB (test code = HGB) 12.3 g/dL 14.1-18.1 HCT (test code = HCT) 38.5 % 34.5-53.7 MCV (test code = MCV) 88.8 fL 80.0-97.0 MCH (test code = MCH) 28.3 pg 26.0-32.0 MCHC (test code = MCHC) 31.9 g/dL 31.0-36.0 RDW (test code = RDW) 14.6 % 11.5-14.5 plt (test code = plt) 285 K/uL 140-440 MPV (test code = MPV) 6.7 fL 0.0-99.8 CBC W Auto Differential panel - [id number] 12:30:00 Test Item Value Reference Range Comments WBC (test code = WBC) 8.5 K/uL 4.1-10.9 lym% (test code = lym%) 45.0 % 10.0-58.5 lym# (test code = lym#) 3.8 % 0.6-4.1 mxd# (test code = mxd#) 0.6 % 0.0-1.8 mxd% (test code = mxd%) 7.3 % 0.1-24.0 gran (test code = gran) 4.1 % 2.0-7.8 gran% (test code = gran%) 47.7 % 37.0-92.0 RBC (test code = RBC) 4.31 M/uL 4.20-6.30 HGB (test code = HGB) 12.4 g/dL 14.1-18.1 HCT (test code = HCT) 37.9 % 34.5-53.7 MCV (test code = MCV) 88.0 fL 80.0-97.0 MCH (test code = MCH) 28.8 pg 26.0-32.0 MCHC (test code = MCHC) 32.7 g/dL 31.0-36.0 RDW (test code = RDW) 14.2 % 11.5-14.5 plt (test code = plt) 251 K/uL 140-440 MPV (test code = MPV) 6.4 fL 0.0-99.8 Urinalysis macro (dipstick) panel - [id number] 12:14:00 Test Item Value Reference Range Comments glucose (test code = glucose) negative bilirubin (test code = bilirubin) negative ketones (test code = ketones) negative specific gravity (test code = specific gravity) 1.001-1.035 blood (test code = blood) negative pH (test code = pH) 5.0-9.0 protein (test code = protein) negative urobilinogen (test code = urobilinogen) negative nitrates (test code = nitrates) negative leukocytes (test code = leukocytes) negative sent for culture (test code = sent for culture) yes CPT multistix (test code = CPT multistix) 08568 CPT uriscreen accutest (test code = CPT uriscreen positive 65893 accutest) CBC W Auto Differential panel - [id number] 00:00:00 Test Item Value Reference Range Comments Leukocytes [#/volume] in Blood by Automated 9.4 x10e3/uL 3.4- 10.8 count (test code = 6690-2) Erythrocytes [#/volume] in Blood by Automated 4.38 x10e6/uL 3. 77-5.28 count (test code = 789-8) Hemoglobin [Mass/volume] in Blood (test code = 12.9 g/dL 1 1.1-15.9 718-7) Hematocrit [Volume Fraction] of Blood by 40.2 % 34.0-46 .6 Automated count (test code = 4544-3) Erythrocyte mean corpuscular volume [Entitic 92 fL 79- 97 volume] by Automated count (test code = 787-2) Erythrocyte mean corpuscular hemoglobin 29.5 pg 26.6-33. 0 [Entitic mass] by Automated count (test code = 785-6) Erythrocyte mean corpuscular hemoglobin 32.1 g/dL 31.5-35. 7 concentration [Mass/volume] by Automated count (test code = 786-4) Erythrocyte distribution width [Ratio] by 13.2 % 11.7-1 5.4 Automated count (test code = 788-0) Platelets [#/volume] in Blood by Automated 328 x10e3/uL 150-4 50 count (test code = 777-3) Neutrophils/100 leukocytes in Blood by 43 % not estab . Automated count (test code = 770-8) Lymphocytes/100 leukocytes in Blood by 46 % not estab . Automated count (test code = 736-9) Monocytes/100 leukocytes in Blood by Automated 6 % n ot estab. count (test code = 5905-5) Eosinophils/100 leukocytes in Blood by 4 % not estab . Automated count (test code = 713-8) Basophils/100 leukocytes in Blood by Automated 1 % n ot estab. count (test code = 706-2) immature cells (test code = immature cells) unpaid intern Neutrophils [#/volume] in Blood by Automated 4.1 x10e3/uL 1.4 -7.0 count (test code = 751-8) Lymphocytes [#/volume] in Blood by Automated 4.3 x10e3/uL 0.7 -3.1 count (test code = 731-0) Monocytes [#/volume] in Blood by Automated 0.6 x10e3/uL 0.1-0 .9 count (test code = 742-7) Eosinophils [#/volume] in Blood by Automated 0.4 x10e3/uL 0.0 -0.4 count (test code = 711-2) Basophils [#/volume] in Blood by Automated 0.1 x10e3/uL 0.0-0 .2 count (test code = 704-7) Immature granulocytes/100 leukocytes in Blood 0 % no t estab. by Automated count (test code = 34980-9) Immature granulocytes [#/volume] in Blood by 0.0 x10e3/uL 0.0 -0.1 Automated count (test code = 31082-3) Nucleated erythrocytes/100 leukocytes [Ratio] unpaid intern in Blood by Automated count (test code = 43696-8) Morphology [Interpretation] in Blood Narrative note: (test code = 34459-5) Helicobacter pylori [Presence] in Stomach by urea breath [id number] 00:00:00 Test Item Value Reference Range Comments Helicobacter pylori [Presence] in Stomach by urea negative negative breath test (test code = 34958-1) creatinine, [id number] 00:00:00 Test Item Value Reference Range Comments creatinine, POC (test code = creatinine, POC) 1.1 mg/dL 0. 5-1.5 Urinalysis macro (dipstick) panel - [id number] 10:11:00 Test Item Value Reference Range Comments glucose (test code = glucose) negative bilirubin (test code = bilirubin) negative ketones (test code = ketones) negative specific gravity (test code = specific gravity) 1.001-1.035 blood (test code = blood) negative pH (test code = pH) 5.0-9.0 protein (test code = protein) negative urobilinogen (test code = urobilinogen) negative nitrates (test code = nitrates) negative leukocytes (test code = leukocytes) negative sent for culture (test code = sent for culture) no CPT multistix (test code = CPT multistix) >69482 CPT uriscreen accutest (test code = CPT uriscreen negative >84420 accutest) CBC W Auto Differential panel - [id number] 09:32:00 Test Item Value Reference Range Comments WBC (test code = WBC) 13.6 K/uL 4.1-10.9 lym% (test code = lym%) 17.6 % 10.0-58.5 lym# (test code = lym#) 2.4 % 0.6-4.1 mxd# (test code = mxd#) 0.9 % 0.0-1.8 mxd% (test code = mxd%) 6.5 % 0.1-24.0 gran (test code = gran) 10.3 % 2.0-7.8 gran% (test code = gran%) 75.9 % 37.0-92.0 RBC (test code = RBC) 4.66 M/uL 4.20-6.30 HGB (test code = HGB) 13.3 g/dL 14.1-18.1 HCT (test code = HCT) 41.7 % 34.5-53.7 MCV (test code = MCV) 89.4 fL 80.0-97.0 MCH (test code = MCH) 28.5 pg 26.0-32.0 MCHC (test code = MCHC) 31.9 g/dL 31.0-36.0 RDW (test code = RDW) 14.3 % 11.5-14.5 plt (test code = plt) 264 K/uL 140-440 MPV (test code = MPV) 6.5 fL 0.0-99.8 Comprehensive metabolic 2000 panel - Serum or [id number] 00:00:00 Test Item Value Reference Range Comments calcium (test code = calcium) 10.2 mg/dL 8.4-10.2 glucose (test code = glucose) 87 mg/dL 75-110 blood urea nitrogen (test code = blood urea 19 mg/dL 7-20 nitrogen) creatinine result (test code = creatinine 0.97 mg/dL 0.52-1 .25 result) eGFR,non (test code = eGFR,non 58 >60 ) eGFR, (test code = eGFR, > 60 >60 danish) potassium (test code = potassium) 4.6 mmol/L 3.6-5.0 chloride (test code = chloride) 106 mmol/L 98-107 carbon dioxide (test code = carbon dioxide) 26 mmol/L 22-3 0 sodium (test code = sodium) 143.1 mmol/L 137-145 anion gap (test code = anion gap) 11 5-19 albumin (test code = albumin) 4.3 g/dL 3.5-5.0 aspartate amino transferase (test code = 26 U/L 14-36 aspartate amino transferase) alkaline phosphatase (test code = alkaline 96 U/L 38-12 6 phosphatase) alanine aminotransferase (test code = alanine 18 U/L <3 5 aminotransferase) bilirubin,total (test code = bilirubin,total) 0.3 mg/dL 0. 2-1.3 bilirubin,direct (test code = bilirubin,direct) 0.2 mg/dL 0.0-0.4 total protein (test code = total protein) 8.1 g/dL 6.3-8. 2 CBC W Auto Differential panel - [id number] 15:36:00 Test Item Value Reference Range Comments WBC (test code = WBC) 10.2 K/uL 4.1-10.9 lym% (test code = lym%) 47.7 % 10.0-58.5 lym# (test code = lym#) 4.9 % 0.6-4.1 mxd# (test code = mxd#) 0.6 % 0.0-1.8 mxd% (test code = mxd%) 5.6 % 0.1-24.0 gran (test code = gran) 4.8 % 2.0-7.8 gran% (test code = gran%) 46.7 % 37.0-92.0 RBC (test code = RBC) 4.56 M/uL 4.20-6.30 HGB (test code = HGB) 13.4 g/dL 14.1-18.1 HCT (test code = HCT) 41.5 % 34.5-53.7 MCV (test code = MCV) 90.9 fL 80.0-97.0 MCH (test code = MCH) 29.4 pg 26.0-32.0 MCHC (test code = MCHC) 32.3 g/dL 31.0-36.0 RDW (test code = RDW) 13.2 % 11.5-14.5 plt (test code = plt) 292 K/uL 140-440 MPV (test code = MPV) 7.3 fL 0.0-99.8 Knee [id number] 12:58:13 Test Item Value Reference Range Comments Result: (test code = Result:) Abnormal Assessments Condition Name Status Diagnosis Date Treating Clinici an Thoracic spondylosis without myelopathy Active 09:45:45 Neck pain 2020-06-07 09:49:02 Low back pain 2020-05-12 11:39:04 Neck pain 2020-05-12 11:39:23 Thoracic back pain 2020-05-12 11:39:30 Essential hypertension 2020-04-01 11:25:12 Irritable bowel syndrome 2020-04-01 11:25:14 Administration of influenza vaccine 2020-04-01 1 1:35:00 Bilateral knee pain 2020-03-04 08:30:34 Osteoarthritis of knee Active 2020-03-09 10:52:44 Morbid obesity 2020-03-09 10:52:48 Pain in right knee 2020-03-09 11:37:47 Obstructive sleep apnea syndrome 2020-02-05 09:5 8:03 Lumbosacral radiculopathy Active 2020-02-05 09:58:06 Degenerative joint disease involving Active 2020-02-05 09:58:09 multiple joints Anxiety 2020-02-05 10:37:59 Bilateral knee pain 2020-01-05 09:21:19 Bilateral osteoarthritis of knees Active 2020-01-21 13: 19:01 Bilateral knee pain 2019-12-22 11:15:17 Osteoarthritis of knee Active 2019-12-22 11:22:14 Osteoarthritis of left knee joint Active 2020-01-07 11: 45:55 Essential hypertension 2019-12-15 11:30:24 Degenerative joint disease involving Active 2019-12-15 11:30:23 multiple joints Dysuria-frequency syndrome Active 2019-12-15 12:53:06 Body mass index 40+ - severely obese Active 2019-12-15 11:30:11 Persistent insomnia Active 2019-12-15 13:03:15 Essential hypertension 2019-10-21 11:51:33 Asthma 2019-10-21 11:51:37 Gastroesophageal reflux disease 2019-10-21 13:15 :43 Irritable bowel syndrome 2019-10-21 13:23:07 Abdominal pain Active 2019-09-21 15:00:05 Atypical chest pain Active 2019-09-21 15:23:06 Essential hypertension Active 2019-09-21 14:57:39 Body mass index 40+ - severely obese Active 2019-09-21 14:57:27 Vomiting Active 2019-09-11 17:34:15 Acute gastroenteritis Active 2019-09-11 17:36:43 Nausea, vomiting and diarrhea Active 2019-09-11 17:37:0 7 Abdominal pain Active 2019-08-10 15:12:20 Essential hypertension Active 2019-08-10 15:13:40 Abdominal pain Active 2019-08-04 10:15:01 Nausea, vomiting and diarrhea Active 2019-08-04 10:21:5 9 Thoracic spondylosis without myelopathy Active 11:41:01 Low back pain Active 2019-06-15 08:36:41 Thoracic spondylosis Active 2019-06-15 09:16:35 Lumbar spondylosis Active 2019-06-15 09:16:47 Adult health examination Active 2019-05-05 14:48:12 Immunization Active 2019-05-05 16:15:02 Screening for malignant neoplasm of Active 2019-05-05 1 6:41:49 breast Screening for malignant neoplasm of Active 2019-05-05 1 4:48:12 colon Screening for osteoporosis Active 2019-05-05 14:48:12 Screening for cardiovascular system Active 2019-05-05 1 4:48:12 disease Advance directive discussed with 2019-05-05 14:4 8:12 patient Asthma Active 2019-05-05 15:02:22 Essential hypertension Active 2019-05-05 15:13:20 Body mass index 30+ - obesity Active 2019-05-05 16:23:5 7 Persistent insomnia Active 2019-05-05 16:33:16 Bilateral knee pain Active 2019-03-03 11:30:57 Osteoarthritis of knee Active 2019-03-03 12:55:17 Knee pain Active 2019-01-20 11:13:30 Osteoarthritis of knee Active 2019-01-20 11:45:22 Bilateral knee pain Active 2018-12-16 13:47:55 Osteoarthritis of knee Active 2018-12-16 15:43:11 Knee pain Active 2018-12-08 12:51:29 Osteoarthritis of knee Active 2018-12-08 12:52:50 Body mass index 30+ - obesity Active 2018-12-08 13:08:3 2 Synovial cyst of left popliteal space Active 2018-10-22 13:42:35 Ingrowing toenail Active 2018-10-22 13:56:04 Pain in left lower limb Active 2018-08-18 14:42:39 Peripheral vascular disease Active 2018-08-18 14:41:12 Body mass index 40+ - severely obese Active 2018-08-18 14:41:19 Ankle pain Active 2018-07-22 10:26:47 Sprain, ankle joint, lateral Active 2018-07-22 11:24:43 Pain of right ankle joint Active 2018-06-24 10:16:59 Sprain, ankle joint, lateral Active 2018-06-24 10:25:28 Adult health examination Active 2018-04-23 10:16:35 Immunization Active 2018-04-23 10:16:35 Screening for malignant neoplasm of Active 2018-04-23 1 0:16:35 breast Screening for malignant neoplasm of Active 2018-04-23 1 0:16:35 cervix Screening for malignant neoplasm of Active 2018-04-23 1 0:16:35 colon Screening for cardiovascular system Active 2018-04-23 1 0:16:35 disease Essential hypertension Active 2018-04-23 10:17:09 Nausea and vomiting Active 2018-04-23 10:27:24 Body mass index 40+ - severely obese Active 2018-04-23 10:27:34 Encounters Start End Encounter Admission Attending Care Care Encounter Date/Time Date/Time Type Type Clinicians Facility Department ID 2020-05-31 2020-05-31 [facility] [id number] 00:00:00 00:00:[id number] : [id number] [place] [address] , Ph. 2020-05-12 2020-05-12 Nate [facility] 93 [id number] 00:00:00 00:00:00 Nayana Napoles , P.A. 17053 MD Gentry: [address] [place] [address] , Ph. 2020-04-01 2020-04-01 [facility] [id number]_ 00:00:00 00:00:00 [facility] 023 Georgia Tellez Medical MD: 25 [facility], [place] [address] , Ph. 2020-03-09 2020-03-09 Miguel Sethi [id number] 00:00:00 00:00:00 Charanjit, Surgical Surgical [id number] DO: [address] [facility], [address], [place] [address] , Ph. 2020-02-05 2020-02-05 Counts Include 234 [facility] [id number]_ 00:00:00 00:00:00 SUZETTE DiazP: [facility] 828 [address] [facility], [place] [address] , Ph. 2020-01-05 2020-01-05 Dakota Sethi [id number] 00:00:00 00:00:00 Rahul [facility] 82708 Corey Kraus MD: [address], [address], [place] [address] , Ph. 2019-12-22 2019-12-22 Dakota Sethi [id number] 00:00:00 00:00:00 [facility] 86069 Corey Kraus MD: 2145 [facility], [address], [place] [address] , Ph. 2019-12-15 2019-12-15 [facility] [id number]_ 00:00:00 00:00:00 [facility] 707 Georgia Tellez Medical : 25 [facility] [place], [place] [address] , Ph. 2019-10-21 2019-10-21 [facility] [id number]_ 00:00:00 00:00:00 [facility] 513 Georgia Tellez Medical : [address] [place] [address] , Ph. 2019-09-21 2019-09-21 [facility] [id number] 00:00:00 00:00:00 [facility] [address] [place], Medical Medical MD: 25 [place] [address] , Ph. 2019-09-11 2019-09-11 [facility] [id number]_ 00:00:00 00:00:00 [facility] Medical MD: [address] [place] [address] , Ph. 2019-08-10 2019-08-10 [facility] [id number]_ 00:00:00 00:00:00 [facility] Medical Medical MD: [address] [place] [address] , Ph. 2019-08-04 2019-08-04 [facility] [id number]_ 00:00:00 00:00:00 [facility] 225 [facility], Medical Medical MD: 25 [place] [address] , Ph. 2019-06-22 2019-06-22 Jaylon S [facility] [id number] 00:00:00 00:00:00 Mota P.A. , P.A. 08789 : [address] [place] [address] , Ph. 2019-06-15 2019-06-15 Nura [facility] 93 [id number] 00:00:00 00:00:00 Vazquez P.A. , P.A. 38326 GOVIND-Royal: [address] [place] [address] , Ph. 2019-05-05 2019-05-05 [facility] [id number]_ 00:00:00 00:00:00 [facility] 126 [place], Medical Medical MD: 25 [facility], [place] [address] , Ph. 2019-03-03 2019-03-03 Dakota Sethi [id number] 00:00:00 00:00:00 [facility] 65131 Corey Kraus MD: 2[address] [facility], [address], [place] [address] , Ph. 2019-01-20 2019-01-20 Dakota Sethi [id number] 00:00:00 00:00:00 [facility] 12925 Corey Kraus MD: [address] [place] [address], [address], [place] [address] , Ph. 2018-12-16 2018-12-16 Dakota Sethi [id number] 00:00:00 00:00:00 [facility] 01655 Corey Kraus MD: [address] [place] [address], [address], [place] [address] , Ph. 2018-12-08 2018-12-08 [facility] [id number] 00:00:00 00:00:00 [facility] 701 Geoff, Medical Medical MD: [address] [facility], [place] [address] , Ph. 2018-10-22 2018-10-22 [facility] [id number] 00:00:00 00:00:00 [facility] 515 [place], Medical Medical MD: 25 [facility], [place] [address] , Ph. 2018-08-18 2018-08-18 [facility] [id number]_ 00:00:00 00:00:00 [facility] 311 [place], Medical Medical MD: 25 [facility], [place] [address] , Ph. 2018-07-22 2018-07-22 Dakota Penat [id number] 00:00:00 00:00:00 [facility] 17282 Corey Kraus MD: 5 [facility], [address], [place] [address] , Ph. 2018-06-24 2018-06-24 Dakota Penat [id number] 00:00:00 00:00:00 [facility] 39624 Corey Kraus MD: 2[address] [facility], [address], [place] [address] , Ph. 2018-04-23 2018-04-23 [facility] [id number]_ 00:00:00 00:00:00 [place] [address] Geoff, Medical Medical MD: [place] [address] , Ph. Immunizations Ordered Filled Immunization Date Status Comments Refus al Reason Immunization Name Name influenza, 2016-02-24 Completed injectable, 00:00:00 quadrivalent Influenza, Unknown Completed injectable, MDCK, preservative free, quadrivalent zoster live Unknown Completed pneumococcal Unknown Completed conjugate PCV 13 influenza, Unknown Completed seasonal, injectable, preservative free zoster recombinant Unknown Completed Plan of Treatment Planned Activity Planned Date Details Comments Future Appointment 2020-07-07 10:15:00 Procedure Procedure Room [facility], [address] [place] [address] Social History Smoking Status Start Date Stop Date Never Smoker Vital Signs Vital Name Observation Time Observation Value Comments Height 2020-05-31 00:00:00 65 [in_i] BMI (Body Mass Index) 2020-05-31 00:00:00 38.3 kg/m2 Body Weight 2020-05-31 00:00:00 230 [lb_av] BMI (Body Mass Index) 2020-05-12 00:00:00 40.1 kg/m2 Body Weight 2020-05-12 00:00:00 241 [lb_av] Height 2020-05-12 00:00:00 65 [in_i] BP Diastolic 2020-04-01 00:00:00 72 mm[Hg] Height 2020-04-01 00:00:00 66 [in_i] BMI (Body Mass Index) 2020-04-01 00:00:00 41.9 kg/m2 BP Systolic 2020-04-01 00:00:00 103 mm[Hg] Body Weight 2020-04-01 00:00:00 259.6 [lb_av] Height 2020-03-09 00:00:00 65 [in_i] BMI (Body Mass Index) 2020-03-09 00:00:00 40.8 kg/m2 Body Weight 2020-03-09 00:00:00 245 [lb_av] BP Diastolic 2020-02-05 00:00:00 77 mm[Hg] Height 2020-02-05 00:00:00 66 [in_i] BMI (Body Mass Index) 2020-02-05 00:00:00 40.3 kg/m2 BP Systolic 2020-02-05 00:00:00 118 mm[Hg] Body Weight 2020-02-05 00:00:00 249.4 [lb_av] Height 2020-01-05 00:00:00 65 [in_i] BMI (Body Mass Index) 2020-01-05 00:00:00 40.8 kg/m2 Body Weight 2020-01-05 00:00:00 245 [lb_av] Height 2019-12-22 00:00:00 65 [in_i] BMI (Body Mass Index) 2019-12-22 00:00:00 40.8 kg/m2 Body Weight 2019-12-22 00:00:00 245 [lb_av] Height 2019-12-22 00:00:00 65 [in_i] BMI (Body Mass Index) 2019-12-22 00:00:00 40.8 kg/m2 Body Weight 2019-12-22 00:00:00 245 [lb_av] BP Diastolic 2019-12-15 00:00:00 83 mm[Hg] Height 2019-12-15 00:00:00 66 [in_i] BMI (Body Mass Index) 2019-12-15 00:00:00 40.7 kg/m2 BP Systolic 2019-12-15 00:00:00 126 mm[Hg] Body Weight 2019-12-15 00:00:00 252 [lb_av] BP Diastolic 2019-10-21 00:00:00 83 mm[Hg] Height 2019-10-21 00:00:00 66 [in_i] BMI (Body Mass Index) 2019-10-21 00:00:00 40.7 kg/m2 BP Systolic 2019-10-21 00:00:00 129 mm[Hg] Body Weight 2019-10-21 00:00:00 252 [lb_av] BP Diastolic 2019-09-21 00:00:00 78 mm[Hg] Height 2019-09-21 00:00:00 66 [in_i] BMI (Body Mass Index) 2019-09-21 00:00:00 39.9 kg/m2 BP Systolic 2019-09-21 00:00:00 110 mm[Hg] Body Weight 2019-09-21 00:00:00 247 [lb_av] BP Diastolic 2019-08-10 00:00:00 71 mm[Hg] Height 2019-08-10 00:00:00 66 [in_i] BMI (Body Mass Index) 2019-08-10 00:00:00 39.4 kg/m2 BP Systolic 2019-08-10 00:00:00 109 mm[Hg] Body Weight 2019-08-10 00:00:00 244.2 [lb_av] BP Diastolic 2019-08-04 00:00:00 78 mm[Hg] Height 2019-08-04 00:00:00 66 [in_i] BMI (Body Mass Index) 2019-08-04 00:00:00 39.7 kg/m2 BP Systolic 2019-08-04 00:00:00 121 mm[Hg] Body Weight 2019-08-04 00:00:00 246 [lb_av] Height 2019-06-22 00:00:00 65 [in_i] BMI (Body Mass Index) 2019-06-22 00:00:00 40.1 kg/m2 Body Weight 2019-06-22 00:00:00 241 [lb_av] Height 2019-06-15 00:00:00 65 [in_i] BMI (Body Mass Index) 2019-06-15 00:00:00 40.1 kg/m2 Body Weight 2019-06-15 00:00:00 241 [lb_av] BP Diastolic 2019-05-05 00:00:00 91 mm[Hg] Height 2019-05-05 00:00:00 66 [in_i] BMI (Body Mass Index) 2019-05-05 00:00:00 40.1 kg/m2 BP Systolic 2019-05-05 00:00:00 136 mm[Hg] Body Weight 2019-05-05 00:00:00 248.4 [lb_av] Height 2019-03-03 00:00:00 65 [in_i] BMI (Body Mass Index) 2019-03-03 00:00:00 40.8 kg/m2 Body Weight 2019-03-03 00:00:00 245 [lb_av] Height 2019-01-20 00:00:00 65 [in_i] BMI (Body Mass Index) 2019-01-20 00:00:00 40.8 kg/m2 Body Weight 2019-01-20 00:00:00 245 [lb_av] Height 2018-12-16 00:00:00 65 [in_i] BMI (Body Mass Index) 2018-12-16 00:00:00 40.8 kg/m2 Body Weight 2018-12-16 00:00:00 245 [lb_av] BP Diastolic 2018-12-08 00:00:00 73 mm[Hg] Height 2018-12-08 00:00:00 66 [in_i] BMI (Body Mass Index) 2018-12-08 00:00:00 39 kg/m2 BP Systolic 2018-12-08 00:00:00 110 mm[Hg] Body Weight 2018-12-08 00:00:00 241.8 [lb_av] BP Diastolic 2018-10-22 00:00:00 86 mm[Hg] Height 2018-10-22 00:00:00 66 [in_i] BMI (Body Mass Index) 2018-10-22 00:00:00 41.6 kg/m2 BP Systolic 2018-10-22 00:00:00 135 mm[Hg] Body Weight 2018-10-22 00:00:00 258 [lb_av] BP Diastolic 2018-08-18 00:00:00 84 mm[Hg] Height 2018-08-18 00:00:00 66 [in_i] BMI (Body Mass Index) 2018-08-18 00:00:00 41.3 kg/m2 BP Systolic 2018-08-18 00:00:00 144 mm[Hg] Body Weight 2018-08-18 00:00:00 256 [lb_av] BP Diastolic 2018-07-22 00:00:00 58 mm[Hg] Height 2018-07-22 00:00:00 65 [in_i] BMI (Body Mass Index) 2018-07-22 00:00:00 40.8 kg/m2 BP Systolic 2018-07-22 00:00:00 150 mm[Hg] Body Weight 2018-07-22 00:00:00 245 [lb_av] Height 2018-06-24 00:00:00 65 [in_i] BMI (Body Mass Index) 2018-06-24 00:00:00 40.8 kg/m2 Body Weight 2018-06-24 00:00:00 245 [lb_av] BP Diastolic 2018-04-23 00:00:00 91 mm[Hg] Height 2018-04-23 00:00:00 66 [in_i] BMI (Body Mass Index) 2018-04-23 00:00:00 40.9 kg/m2 BP Systolic 2018-04-23 00:00:00 142 mm[Hg] Body Weight 2018-04-23 00:00:00 253.4 [lb_av] Hospital Discharge Instructions 1. Low back pain back care and preventing injuries: care instructions getting back to normalafter low back pain: care instructions learning about relief for back pain XR, lumbar spine 2. Neck pain neck pain: care instructions XR, cervical spine 3. Thoracic back pain healthy upper back: exercises XR, thoracic spine Discussion Note: None recorded.1. Essential hypertension CMP, serum or plasma CBC w/ auto diff lipid panel, blood dash diet: care instructions high blood pressure: care instructions low sodium diet (2,000 milligram): care instructions 2. Irritable bowel syndrome irritable bowel syndrome: care instructions 3. Administration of influenza vaccine influenza (flu) vaccine (inactivated or recombinant): what you need to know Discussion Note Patient verbalized understanding and agreement with recommended care plan. All questions and concerns were addressed and answered adequately. Follow up visit will address htn, asthma, oa1. Bilateral knee pain XR, knee, 3 view 2. Osteoarthritis of knee genicular nerve block (PROC) radiofrequency ablation (SURG) Valium 5 mg tablet 3. Morbid obesity 4. Pain in right knee Discussion Note: None recorded. Patient educational handouts: No information available.1. Obstructive sleep apnea syndrome sleep apnea: care instructions 2. Lumbosacral radiculopathy back pain: care instructions 3. Degenerative joint disease involving multiple joints osteoarthritis: care instructions 4. Anxiety anxiety disorder: care instructions Discussion Note Patient verbalized understanding and agreement with recommended care plan. All questions and concerns were addressed and answered adequately. Follow up visit will address htn, ibs1. Bilateral knee pain 2. Osteoarthritis of knee knee arthritis: care instructions Discussion Note: None recorded.1. Essential hypertension dash diet: care instructions low sodium diet (2,000 milligram): care instructions high blood pressure: care instructions 2. Degenerative joint disease involving multiple joints osteoarthritis: care instructions diclofenac epolamine 1.3 % transdermal 12 hour patch orthopedic referral 3. Dysuria-frequency syndrome urinalysis, dipstick CBC w/ auto diff culture, urine + sensitivity amoxicillin 500 mg-potassium clavulanate 125 mg tablet 4.Body mass index 40+ - severely obese body mass index: care instructions learning about healthy weight 5. Persistent insomnia trazodone 50 mg tablet Discussion Note Patient verbalized understanding and agreement with recommended care plan. All questions and concerns were addressed and answered adequately. Follow up visit will address jose alejandro, lumbar radiculopathy, oa1. Vomiting 2. Acute gastroenteritis 3. Nausea, vomiting and diarrhea hydroxyzine HCl 25 mg tablet loperamide 2 mg tablet Discussion Note Patient verbalized understanding and agreement with recommended care plan. All questions and concerns were addressed and answered adequately. Follow up visit will address abdominal pain, htn, wgt mgt Patient educational handouts: No information available.1. Abdominal pain CBC w/ auto diff urinalysis, dipstick Augmentin 875 mg-125 mg tablet abdominal pain: care instructions CT, abdomen + pelvis, w/ contrast 2. Nausea, vomiting and danielle rrhea dealing with nausea and vomiting from cancer treatment: care instructions ondansetron HCl 4 mg tablet Discussion Note Patient verbalized understanding and agreement with recommended care plan. All questions and concerns were addressed and answered adequately. Follow up visit will address abdominal pain, htn1. Low back pain XR, lumbar spine 2. Thoracic spondylosis cyclobenzaprine 10 mg tablet facet joint injection, thoracic (PROC) - KAI- F/U with AG 2 wks post injection 3. Lumbar spondylosis Discussion Note: None recorded. Patient educational handouts: No information available.1. Adult health examination visual acuity well visit, over 65: care instructions nutrition for older adults: care instructions walking for exercise: care instructions preventing falls: care instructions preventing outdoor falls: care instructions 2. Immunization Shingrix (PF) 50 mcg/0.5 mL intramuscular suspension, kit Prevnar 13 (PF) 0.5 mL intramuscular syringe influenza (flu) vaccine (inactivated or recombinant): what you need to know pneumococcal polysaccharide vaccine: what you need to know pneumococcal conjugate vaccine (pcv13): what you need to know shingles vaccine: what you need to know td (tetanus, diphtheria) vaccine: what you need to know 3. Screening for malignant neoplasm of breast learning about breast cancer screening MAMMO, screening, digital, bilateral 4. Screening for malignant neoplasm of colon fecal occult blood, stool colon cancer screening: care instructions high-fiber diet: care instructions 5. Screening for osteoporosis bone density preventing osteoporosis: care instructions 6. Screening for cardiovascular system disease electrocardiogram reducing heart attack risk with daily medicine: care instructions taking aspirin and other antiplatelets safely: care instructions 7. Advance directive discussed with patient advance directives: care instructions advance care planning : care instructions learning about living ferris learning about durable power of transactional attorney forhealth care 8. Asthma Symbicort 160 mcg-4.5 mcg/actuation HFA aerosol inhaler Aerochamber MVspacer ipratropium- albuterol 0.5 mg-3 mg(2.5 mg base)/3 mL nebulization soln ProAir HFA 90 mc g/actuation aerosol inhaler 9. Essential hypertension CMP, serum or plasma CBC w/ auto diff lipid panel, blood dash diet: care instructions low sodium diet (2,000 milligram): care instructions high blood pressure: care instructions 10. Body mass index 30+ - obesity diethylpropion 25 mg tablet starting a weight loss plan: care instructions eating healthy foods: careinstructions 11. Persistent insomnia trazodone 50 mg tablet insomnia: care instructions Discussion Note Patient verbalized understanding and agreement with recommended care plan. All questions and concerns were addressed and answered adequately. Follow up visit will address htn, oa, wgt mgt1. Bilateral knee pain 2. Osteoarthritis of knee knee arthritis: care instructions Discussion Note: None recorded.1. Knee pain knee brace 2. Osteoarthritis of knee knee arthritis: care instructions Discussion Note: None recorded.1. Bilateral knee pain Pain Cream Option [facility] 2. Osteoarthritis of knee knee arthritis: care instructions Discussion Note: None recorded.1. Knee pain XR, knee XR, knee knee pain or injury: care instructions 2. Osteoarthritis of knee knee arthritis: care instructions physical therapy referral orthopedic surgery referral 3. Body mass index 30+ - obesity diethylpropion 25 mg tablet body mass index: care instructions eating healthy foods: care instructions learning about healthy weight Discussion Note Patient verbalized understanding and agreement with recommended care plan. All questions and concerns were addressed and answered adequately. Follow up visit will address htn, oa1. Synovial cyst of left popliteal space US, knee meloxicam 7.5 mg tablet 2. Ingrowing toenail ingrown toenail: care instructions Discussion Note Patient verbalized understanding and agreement with recommended care plan. All questions and concerns were addressed and answered adequately. Follow up visit will address1. Pain in left lower limb US, duplex, venous, lower extremity leg pain: care instructions 2. Peripheral vascular disease peripheral arterial disease of the leg: care instructions cilostazol 100 mg tablet 3. Body mass index 40+ - severely obese body mass index: care instructions learning about healthy weight Discussion Note Patient verbalized understanding and agreement with recommended care plan. All questions and concerns were addressed and answered adequately. Follow up visit will address htn, pad, dvt assessment1. Pain of right ankle joint XR, ankle 2. Sprain, ankle joint, lateral Discussion Note: None recorded. Patient educational handouts: No information available.1. Adult health examination well visit, women 50 to 65: care instructions visual acuity eating healthy foods: care instructions walking for exercise: care instructions preventing falls: care instructions A healthy lifestyle: care instructions 2. Immunization immunization: what you need to know pneumococcal polysaccharide vaccine: what you need to know Tdap (tetanus, diphtheria, pertussis) vaccine: what you need to know 3. Screening for malignant neoplasm of breast mammogram screening patient instructions learning about breast cancer screening MAMMO, screening, digital, bilateral 4. Screening for malignant neoplasm of cervix learning about Pap tests human papillomavirus (HPV): care instructions 5. Screening for malignant neoplasm of colon colon cancer screening: care instructions fecal occult blood, stool 6. Screening for cardiovascular system disease A healthy heart: care instructions taking aspirin and other antiplatelets safely: care instructions reducing heart attack risk with daily medicine: care instructions 7. Essential hypertension CBC w/ auto diff lipid panel, blood CMP, serum or plasma 8. Nausea and vomiting Zofran 4 mg tablet 9. Body mass index 40+ - severely obese diet and exercise for metabolic syndrome: care instructions starting a weight loss plan: care instructions Discussion Note Patient verbalized understanding and agreement with recommended care plan. All questions and concerns were addressed and answered adequately. Follow up visit will address htn, oa, wgt mgt
== END ==
LOC: RAD 09:46
PROVIDERS: ATTEND Family Medicine
DX: M17.0 Bilateral primary osteoarthritis of knee (principal)
CPT/HCPCS: 64624; J3490 ×2